=== PATIENT | female | born 1960 | race African-American/Black ===

== ENCOUNTER 2018-09-12 16:32 | Inpatient (IN) | payer OTHER ==
--- NOTE | 2018-09-12 19:38 | PDOC ---
History of Present Illness - General Chief Complaint: Pain Stated Complaint: L BREAST PAIN, [facility] Time Seen by Provider: 09/12/18 19:23 - History of Present Illness Initial Comments: 09/12/18 19:54 Ms. Solorzano is a 58 yo female w/ pmh of HIV, COPD, GERD, HTN, Schizoaffective disorder, LINDA, HIV/AIDS (patient endorses not taking HAART meds for several months), and left breast mass suspicious for malignancy who presents for evaluation of left breast mass pain she reports has been constant for several months. She has been self treating the pain with crack cocaine and alcohol. Patient presents as she went to [facility] today for detox and was sent to ER when she reported history/pain to facility staff. Patient had previously been evaluated months ago for this breast mass however facility was not able to provide biopsy and recommended outpatient follow-up which did not happen. The patient denies shortness of breath, headache and dizziness. Denies fever, chills, nausea, vomit, diarrhea and constipation. Denies dysuria, frequency, urgency and hematuria. Past History - Past Medical History Allergies/Adverse Reactions: Allergies Allergy/AdvReac Type Severity Reaction Status Date / Time Beta-Adrenergic Agents Allergy Verified 09/12/18 17:00 COPD: Yes GI Disorders: Yes (GERD) HTN: Yes Hypercholesterolemia: Yes Psychiatric Problems: Yes (SCHIZO) - Suicide/Smoking/Psychosocial Hx Smoking History: Current every day smoker Number of Cigarettes Smoked Daily: 5 Information on smoking cessation initiated: No Hx Alcohol Use: Yes Drug/Substance Use Hx: Yes Substance Use Type: Alcohol, Cocaine Review of Systems - Review of Systems Comments:: 09/12/18 20:06 GENERAL/CONSTITUTIONAL: No fever or chills. No weakness. HEAD, EYES, EARS, NOSE AND THROAT: No change in vision. No ear pain or discharge. No sore throat. CARDIOVASCULAR: No chest pain or shortness of breath RESPIRATORY: +Left chest pain as described. No cough, wheezing, or hemoptysis. GASTROINTESTINAL: No nausea, vomiting, diarrhea or constipation. GENITOURINARY: No dysuria, frequency, or change in urination. MUSCULOSKELETAL: No joint or muscle swelling or pain. No neck or back pain. SKIN: No rash NEUROLOGIC: No headache, vertigo, loss of consciousness, or change in strength/ sensation. ENDOCRINE: No increased thirst. No abnormal weight change HEMATOLOGIC/LYMPHATIC: No anemia, easy bleeding, or history of blood clots. ALLERGIC/IMMUNOLOGIC: No hives or skin allergy. *Physical Exam - Vital Signs Last Vital Signs Temp Pulse Resp BP Pulse Ox 98.8 F 70 18 130/64 99 09/12/18 16:52 09/12/18 16:52 09/12/18 16:52 09/12/18 16:52 09/12/18 16:52 - Physical Exam Comments: 09/12/18 20:07 GENERAL: Awake, alert, and fully oriented, in no acute distress HEAD: No signs of trauma, normocephalic, atraumatic EYES: PERRLA, EOMI, sclera anicteric, conjunctiva clear ENT: Auricles normal inspection, hearing grossly normal, nares patent, oropharynx clear without exudates. Moist mucosa NECK: Normal ROM, supple, no lymphadenopathy, JVD, or masses LUNGS: +Palpable hard mass appreciable in left breast (TTP). Some involution of left nipple appreciated. No distress, speaks full sentences, clear to auscultation bilaterally HEART: Regular rate and rhythm, normal S1 and S2, no murmurs, rubs or gallops, peripheral pulses normal and equal bilaterally. ABDOMEN: Soft, nontender, normoactive bowel sounds. No guarding, no rebound. No masses EXTREMITIES: Normal inspection, Normal range of motion, no edema. No clubbing or cyanosis. NEUROLOGICAL: Cranial nerves II through XII grossly intact. Normal speech, normal gait, no focal sensorimotor deficits SKIN: Warm, Dry, normal turgor, no rashes or lesions noted. ED Treatment Course - LABORATORY CBC & Chemistry Diagram: 09/12/18 21:47 09/12/18 21:47 Medical Decision Making - Medical Decision Making 09/12/18 20:24 Ms. Solorzano is a 58 yo female w/ pmh as described who presents for evaluation of chest pain 2/2 possible malignancy in the setting of untreated HIV /AIDS. Patient workup started accordingly to r/o infectious causes, patient will likely need admission for proper treatment inpatient. 09/12/18 23:44 Patient labs concerning for elevated creatinine and low WBC's as below. Admitting patient for further detox and evaluation/care of HIV and breast mass f /u. Laboratory Results - last 24 hr 1109/12/18 09/12/18 19:39 21:47 21:47 WBC 2.6 L RBC 4.10 Hgb 13.3 Hct 38.5 MCV 93.8 MCH 32.5 MCHC 34.6 RDW 13.3 Plt Count 85 L MPV 11.9 H Absolute Neuts (auto) 1.0 L Neutrophils % 39.1 L Lymphocytes % 37.0 Monocytes % 15.1 H Eosinophils % 7.3 H Basophils % 1.5 Nucleated RBC % 0 Platelet Estimate Slt decrease Platelet Comment Sodium 142 Potassium 4.2 Chloride 112 H Carbon Dioxide 23 Anion Gap 8 BUN 27 H Creatinine 2.2 H Creat Clearance w eGFR 23.01 Random Glucose 85 Calcium 7.6 L Magnesium 2.0 Total Bilirubin 0.3 AST 126 H ALT 95 H Alkaline Phosphatase 81 Creatine Kinase 114 Troponin I < 0.02 Total Protein 6.5 Albumin 1.9 L 09/12/18 21:47 WBC RBC Hgb Hct MCV MCH MCHC RDW Plt Count MPV Absolute Neuts (auto) Neutrophils % Lymphocytes % Monocytes % Eosinophils % Basophils % Nucleated RBC % Platelet Estimate Platelet Comment Sodium Potassium Chloride Carbon Dioxide Anion Gap BUN Creatinine Creat Clearance w eGFR Random Glucose Calcium Magnesium Total Bilirubin AST ALT Alkaline Phosphatase Creatine Kinase 116 Troponin I < 0.02 Total Protein Albumin *DC/Admit/Observation/Transfer Diagnosis at time of Disposition: AIDS, HIV (human immunodeficiency virus infection), Breast mass Alcohol withdrawal Qualifiers: Complication of substance-induced condition: with unspecified complication Qualified Code(s): F10.239 - Alcohol dependence with withdrawal, unspecified - Discharge Dispostion Decision to Admit order: Yes - Referrals - Patient Instructions - Post Discharge Activity
[2018-09-12] MEDS ORDERED: chlordiazePOXIDE HCL 25 MG CAPSULE PO ONE (19:40)
[2018-09-12] MEDS ORDERED: ACETAMINOPHEN 1000 MG/100 ML VIAL (NON FORMULARY) IVPB ONE (19:41)
[2018-09-12] MEDS ORDERED: chlordiazePOXIDE HCL 25 MG CAPSULE ONE (20:11)
[2018-09-12] MEDS ORDERED: ACETAMINOPHEN INJECTION 100 ML IVPB ONE (20:12)
--- NOTE | 2018-09-12 21:13 | PDOC ---
Attending Attestation - Resident Resident Name: Wilman Guzman - ED Attending Attestation I have performed the following: I have examined & evaluated the patient, The case was reviewed & discussed with the resident, I agree w/resident's findings & plan, Exceptions are as noted - Medical Decision Making 09/12/18 21:06 A portion of this note was documented by scribe services under my direction. I have reviewed the details of the note, within reason, and agree with the documentation with the following case summary and management plan written by me. Patient treated in the ED. Patient arrives by... to the emergency department. Nursing notes are reviewed and incorporated into the medical decision-making. Vital signs reviewed. Peripheral IV access obtained by the nurse, laboratory studies are drawn and sent, reviewed and interpreted by myself. Vital Signs Temp Pulse Resp BP Pulse Ox 98.8 F 70 18 130/64 99 09/12/18 16:52 09/12/18 16:52 09/12/18 16:52 09/12/18 16:52 09/12/18 16:52 58 year old F c/ hx of schizoaffective disorder, COPD, HLD, GERD, HIV, last HAART ~1 month ago, unknown VL and CD4 count sent from [address] [place] [address] for left breast pain. The patient is from [place] and recently entered here to [address] [place] [address]. During that time, she complained of left breast pain. The patient has had this left breast mass x several months. The patient was hospitalized in [place] in May 2018 (has paperwork with her) and at that time was admitted for hypotension and elevated lactate. At that time, was evaluated for breast mass vs. abscess. Ultrasound there demonstrated mass highly suspicious for malignancy. However, the discharge summary stated that the facility did not have the capabilities to perform a biopsy. The patient was discharged with breast followup. However, pt did not follow up and admitted that she was using drugs frequently and did not follow up. Once she decided to become sober, the patient had spoken to [address] [place] [address] and the patient was sent here. The patient likely has uncontrolled AIDS, not on medications, has no follow up, and a left breast mass that is likely cancer. Given her poor social status and currently on detox, the patient would likely do poorly with outpatient followup. I strongly feel that the patient will need to be worked up as an inpatient for cancer workup. <John Santiago - Last Filed: 09/12/18 21:21> - HPI HPI: 09/12/18 21:25 The patient is a 58 year old female with a significant PMH of hypertension, COPD , GERD, LINDA, HIV/AIDS( non compliant with medication), Schizoaffective disorder , and left breast mass who presents to the emergency department with left breast pain for several weeks. The patient reports that she has been previously evaluated for her left breast mass in the past but states that in the past several weeks she has been experiencing worsening pain and discomfort in her left breast. She states that her mass has grown in size. The patient reports that she went to [facility] to begin Detox but, was subsequently sent to the ED for further evaluation of her complaint. The patient reports some associated difficulty swallowing . the patient denies any other symptoms. She denies any fever, chills, nausea, vomiting diarrhea, constipation or urinary symptoms. She denies any other associated chest pain, shortness of breath, headache or dizziness. The patient denies any other complaints. - Physicial Exam PE: 09/12/18 21:25 GENERAL: (+) 5x5 cm left immobile breast mass. No discharge. Awake, alert, and fully oriented, in no acute distress HEAD: No signs of trauma EYES: PERRLA, EOMI, sclera anicteric, conjunctiva clear ENT: Auricles normal inspection, hearing grossly normal, nares patent, oropharynx clear without exudates. Moist mucosa NECK: Normal ROM, supple, no lymphadenopathy, JVD, or masses LUNGS: Breath sounds equal, clear to auscultation bilaterally. No wheezes, and no crackles HEART: Regular rate and rhythm, normal S1 and S2, no murmurs, rubs or gallops ABDOMEN: Soft, nontender, normoactive bowel sounds. No guarding, no rebound. No masses EXTREMITIES: Normal range of motion, no edema. No clubbing or cyanosis. No cords, erythema, or tenderness NEUROLOGICAL: Cranial nerves II through XII grossly intact. Normal speech, normal gait SKIN: Warm, Dry, normal turgor, no rashes or lesions noted. Documentation prepared by Eduardo Acevedo, acting as medical affairs specialist for John Santiago MD. <Eduardo Acevedo - Last Filed: 09/12/18 21:25>
[2018-09-12 22:24] LABS: BASO % 1.5 % (0-2.0); EOS % 7.3 % (0-4.5); HEMATOCRIT 38.5 % (32.4-45.2); HEMOGLOBIN 13.3 GM/dL (10.7-15.3); MCH 32.5 pg (25.7-33.7); MCHC 34.6 g/dl (32.0-36.0); MEAN CELL VOLUME 93.8 fl (80-96); MONO % 15.1 % (3.8-10.2); NEUT % 39.1 % (42.8-82.8); RDW 13.3 % (11.6-15.6); WHITE BLOOD COUNT 2.6 K/mm3 (4.0-10.0)
[2018-09-12 22:41] LABS: ALBUMIN 1.9 g/dl (3.4-5.0); ALK PHOS 81 U/L (45-117); ANION GAP 8 MMOL/L (8-16); BILIRUBIN,TOTAL 0.3 mg/dL (0.2-1); BLOOD UREA NITROGEN 27 mg/dL (7-18); CALCIUM 7.6 mg/dL (8.5-10.1); CHLORIDE 112 mmol/L (98-107); CO2 23 mmol/L (21-32); CREATININE 2.2 mg/dL (0.55-1.3); GLUCOSE,RANDOM 85 mg/dL (74-106); POTASSIUM 4.2 mmol/L (3.5-5.1); SGOT/AST 126 U/L (15-37); SGPT/ALT 95 U/L (13-61); SODIUM 142 mmol/L (136-145); TOT PROT 6.5 g/dl (6.4-8.2)
[2018-09-12 23:10] LABS: MEAN PLT VOLUME 11.9 fl (7.5-11.1); PLATELET COUNT 85 K/MM3 (134-434); PLATELET ESTIMATE SLT DECREASE
--- NOTE | 2018-09-13 00:23 | PN ---
Teaching Attending Note Name of Resident: Albaro Mtz ATTENDING PHYSICIAN STATEMENT I saw and evaluated the patient. I reviewed the resident's note and discussed the case with the resident. I agree with the resident's findings and plan as documented. SUBJECTIVE: Patient is a 58 year old woman who has COPD, GERD, HTN, Tobacco use, Schizoaffective disorder, LINDA?, HIV/AIDS (stopped HAART for several months), and left breast mass suspicious for malignancy who presents for evaluation of left breast mass pain she reports has been constant for several months. She has been self treating the pain with crack cocaine and alcohol. Patient presents as she went to [facility] today for detox and was sent to ER when she reported history/pain to facility staff. Patient had previously been evaluated months ago for this breast mass however facility was not able to provide biopsy and recommended outpatient follow-up which did not happen. OBJECTIVE: Somnolent but arousable Vital Signs Period Temp Pulse Resp BP Sys/Lr Pulse Ox Last 24 Hr 98.8 F 70 18 130/64 99 HEENT: No Jaundice, eye redness or discharge, PERRLA, EOMI. Normocephalic, atraumatic. External ears are normal and hearing is grossly intact. No nasal discharge. Neck: Supple, nontender. No palpable adenopathy or thyromegaly. No JVD Chest: Tender left breast mass. No palpable lymphadenopathy. Good effort. Clear to auscultation and percussion. Heart: Regular. No S3, rub or murmur Abdomen: Not distended, soft, nontender and no HSM. No rebound or guarding. Normoactive bowel sounds. Ext: Peripheral pulses intact. No leg edema. Skin: Warm and dry. No petechiae, rash or ecchymosis. Neuro: Alert. Oriented x3. CN 2-12 grossly intact. Sensation grossly intact in all four extremities and DTR are symmetric. Current Medications Generic Name Dose Route Start Last Admin Trade Name Freq PRN Reason Stop Dose Admin Heparin Sodium (Porcine) 5,000 unit 09/13/18 02:00 Heparin - SQ Q8H-IV TIMMY Sodium Chloride 1,000 mls @ 100 mls/hr 09/13/18 00:15 Normal Saline - IV ASDIR TIMMY Abnormal Lab Results 09/12/18 09/12/18 21:47 21:47 WBC 2.6 L Plt Count 85 L MPV 11.9 H Absolute Neuts (auto) 1.0 L Neutrophils % 39.1 L Monocytes % 15.1 H Eosinophils % 7.3 H Chloride 112 H BUN 27 H Creatinine 2.2 H Calcium 7.6 L AST 126 H ALT 95 H Albumin 1.9 L ASSESSMENT AND PLAN: 1. Left Breast Mass - Mass is tender - may be an infection or secondarily infected mass. Needs further workup including sonogram and biopsy. Consult surgery and IR. 2. HIV/AIDS - Needs comprehensive AIDS care including HAART. Will get viral load , CD4 count and hepatitis serology. Elevated LFTs, low platelets and leukopenia likely due to untreated AIDS. Monitor closely for infection in view of leukopenia. Consult ID. 3. Hypoalbuminemia - Possibly due to combined effects of proteinuria, malnutrition and inflammation associated with AIDS. Will ensure adequate dietary protein intake and also consult nurse charge rn. 4. Tobacco Use We will provide patient all the necessary assistance to facilitate smoking cessation and prescribe Nicotine patch. 5. LINDA - Etiology unclear, but severe hypoalbuminemia suggests HIV nephropathy. Get UA, kidney sonogram, PTH and phosphate levels. Consult nephrology and avoid nephrotoxic agents such as NSAIDS, aminoglycosides, contrast dyes and certain Alternative medicine products. 6. Alcohol and Crack abuse - Implement [facility] alcohol withdrawal protocol, fall and aspiration precautions. Treat with thiamine and folic acid and monitor electrolytes (Ca,Mg,K,P). [employer] patient about abstaining from alcohol/crack and refer to alcohol detox upon discharge. 7. DVT prophylaxis - Heparin 5000u sq tid. 8. Advance directives - Full code
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
[2018-09-13] MEDS: SODIUM CHLORIDE 1,000 ML IV SCH (01:04)
[2018-09-13 05:37] LABS: BASO % 1.1 % (0-2.0); EOS % 6.5 % (0-4.5); HEMATOCRIT 39.3 % (32.4-45.2); HEMOGLOBIN 12.6 GM/dL (10.7-15.3); LYMPH % 33.8 % (8-40); MCH 30.4 pg (25.7-33.7); MCHC 32.2 g/dl (32.0-36.0); MEAN CELL VOLUME 94.4 fl (80-96); MEAN PLT VOLUME 11.9 fl (7.5-11.1); MONO % 13.1 % (3.8-10.2); NEUT % 45.5 % (42.8-82.8); PLATELET COUNT 84 K/MM3 (134-434); RBC 4.16 M/mm3 (3.60-5.2); RDW 13.3 % (11.6-15.6); WHITE BLOOD COUNT 2.8 K/mm3 (4.0-10.0)
[2018-09-13 06:03] LABS: ALBUMIN 1.8 g/dl (3.4-5.0); ALK PHOS 71 U/L (45-117); ANION GAP 7 MMOL/L (8-16); BILIRUBIN,TOTAL 0.1 mg/dL (0.2-1); BLOOD UREA NITROGEN 34 mg/dL (7-18); CALCIUM 7.4 mg/dL (8.5-10.1); CHLORIDE 114 mmol/L (98-107); CO2 24 mmol/L (21-32); CREATININE 2.5 mg/dL (0.55-1.3); GLUCOSE,RANDOM 89 mg/dL (74-106); POTASSIUM 4.1 mmol/L (3.5-5.1); SGOT/AST 110 U/L (15-37); SGPT/ALT 86 U/L (13-61); SODIUM 145 mmol/L (136-145); TOT PROT 5.9 g/dl (6.4-8.2)
[2018-09-13] MEDS: HEPARIN NA (PORCINE) 5,000 UNITS/ML 1ML VIAL SQ SCH ×3 (09:57→22:47)
--- NOTE | 2018-09-13 12:58 | CONSULT ---
Consult Consult Specialty:: Nephrology Reason for Consultation:: LINDA - History of Present Illness Chief Complaint: left breast pain History of Present Illness: Pt is a 58 year old female with pmhx of HIV, COPD, GERD, HTN, schizaffective disorder, renal failure, HIV, AIDS and left breast mass who presents with left breast pain. She was fount to be in renal failure and I was called to evaluate her. She does crack and smokes marijuana. She also drinks alcohol. She says she had kidney disease in the past. She was at [facility] for detox. She denies dysuria or hematuria. She does use nsaids at times. She has been off of her HAART meds for months. - History Source History Provided By: Patient, Medical Record - Past Medical History Cardio/Vascular: Yes: HTN Pulmonary: Yes: COPD Gastrointestinal: Yes: GERD Renal/: Yes: Renal Inusuff Infectious Disease: Yes: HIV - Alcohol/Substance Use Hx Alcohol Use: Yes History of Substance Use: reports: Cocaine - Smoking History Smoking history: Current every day smoker Have you smoked in the past 12 months: Yes Aproximately how many cigarettes per day: 5 Home Medications - Allergies Allergies/Adverse Reactions: Allergies Allergy/AdvReac Type Severity Reaction Status Date / Time Beta-Adrenergic Agents Allergy Verified 09/12/18 17:00 Family Disease History - Family Disease History Family History: Denies Review of Systems - Review of Systems Constitutional: reports: No Symptoms Eyes: reports: No Symptoms HENT: reports: No Symptoms Neck: reports: No Symptoms Cardiovascular: reports: No Symptoms Respiratory: reports: No Symptoms Gastrointestinal: reports: No Symptoms Genitourinary: reports: No Symptoms Breasts: reports: Other (left breast pain) Musculoskeletal: reports: No Symptoms Integumentary: reports: No Symptoms Endocrine: reports: No Symptoms Hematology/Lymphatic: reports: No Symptoms Physical Exam Vital Signs: Vital Signs Temperature 98.3 F 09/13/18 08:45 Pulse Rate 61 09/13/18 08:45 Respiratory Rate 16 09/13/18 08:45 Blood Pressure 113/56 L 09/13/18 08:45 O2 Sat by Pulse Oximetry (%) 99 09/13/18 08:45 Constitutional: Yes: Calm Eyes: Yes: Conjunctiva Clear HENT: Yes: Atraumatic Neck: Yes: Supple Cardiovascular: Yes: S1, S2 Respiratory: Yes: CTA Bilaterally Gastrointestinal: Yes: Soft Renal/: Yes: WNL Musculoskeletal: Yes: WNL Edema: No Neurological: Yes: Oriented Psychiatric: Yes: Oriented Labs: CBC, BMP 09/13/18 05:20 09/13/18 05:20 Laboratory Tests 09/12/18 09/13/18 09/13/18 21:47 05:20 05:20 WBC Hgb Sodium Potassium Creatinine 2.2 H Hepatitis A Ab Total Pending Hep Bs Antigen Pending Hep Bs Antibody Pending Hep B Core Total Ab Pending HCV Quantitation HIV-1 RNA Quant Pending HIV-1 RNA (PCR) log10 Pending 09/13/18 09/13/18 09/13/18 05:20 05:20 05:20 WBC 2.8 L Hgb 12.6 Sodium 145 Potassium 4.1 Creatinine 2.5 H Hepatitis A Ab Total Hep Bs Antigen Hep Bs Antibody Hep B Core Total Ab HCV Quantitation Pending HIV-1 RNA Quant HIV-1 RNA (PCR) log10 Imaging - Results Chest X-ray: Report Reviewed Ultrasound: Report Reviewed Problem List - Problems (1) CKD (chronic kidney disease) Code(s): N18.9 - CHRONIC KIDNEY DISEASE, UNSPECIFIED (2) HTN (hypertension) Code(s): I10 - ESSENTIAL (PRIMARY) HYPERTENSION (3) COPD (chronic obstructive pulmonary disease) Code(s): J44.9 - CHRONIC OBSTRUCTIVE PULMONARY DISEASE, UNSPECIFIED (4) AIDS Code(s): B20 - HUMAN IMMUNODEFICIENCY VIRUS [HIV] DISEASE (5) Breast mass Code(s): N63.0 - UNSPECIFIED LUMP IN UNSPECIFIED BREAST (6) HIV (human immunodeficiency virus infection) Code(s): B20 - HUMAN IMMUNODEFICIENCY VIRUS [HIV] DISEASE Assessment/Plan Current Medications Generic Name Dose Route Start Last Admin Trade Name Freq PRN Reason Stop Dose Admin Acetaminophen/Codeine Phosphate 1 tab 09/13/18 13:33 Tylenol # 3 - PO Q8H PRN PAIN LEVEL 4 - 6 Heparin Sodium (Porcine) 5,000 unit 09/13/18 06:00 09/13/18 09:57 Heparin - SQ Not Given TID TIMMY Sodium Chloride 1,000 mls @ 100 mls/hr 09/13/18 00:15 09/13/18 01:04 Normal Saline - IV 100 mls/hr ASDIR TIMMY Administration Impression 1. CKD with unclear baseline 2. COPD 3. HTN 4. HIV not on haart 5. breast mass 6. etoh abuse 7. crack use 8. schizzoaffective 9. gerd Plan - check ua with urine prt to commission for the blind director ratio - will order renal workup - follow hiv serologies to check statu - differential is broad at this point - bp is controlled - avoid nsaids - will try to obtain outpt labs to see what her baseline [facility] the [facility] director is - will follow Dr Arrington
[2018-09-13] MEDS: ACETAMINOPHEN WITH CODEINE 300MG/30MG TABLET PO PRN ×2 (14:05→22:48)
--- NOTE | 2018-09-13 15:42 | EKG ---
Test Reason : Blood Pressure : / mmHG Vent. Rate : 057 BPM Atrial Rate : 057 BPM P-R Int : 164 ms QRS Dur : 080 ms QT Int : 430 ms P-R-T Axes : 040 034 050 degrees QTc Int : 418 ms SINUS BRADYCARDIA SEPTAL INFARCT , AGE UNDETERMINED ABNORMAL ECG NO PREVIOUS ECGS AVAILABLE Confirmed by TE MORENO, AMOS ([id number]) on 09/13/2018 3:42:19 PM Referred By: Confirmed By:AMOS TIWARI MD
--- NOTE | 2018-09-13 16:07 | CON.ID ---
Consult Consult Specialty:: infectious disease Referred by:: hospitalist Reason for Consultation:: HIV positive - History of Present Illness Chief Complaint: left breast pain History of Present Illness: 58 yo female crack/etoh use , hiv= positive- followed by Bibiana Medina at [facility] in [facility], 4 to 5 month history of left breast pain for which she has not sought f/u care. Her HIV medication use is very spotty and she has been off meds since June when she took them for one week-reports her provider had asked her to come weekly and that she only kept one appt she was her provider last week and meds were prescribed again- I called her pharmacy she takes prezcobix and tivicay no history of OIS has been having trouble swallowing for months- also has worsening left breast pain denies IVDU denies history of TB denies hep b or hep c med list from pharmacy prezcobis tivicay folic acid gabapentin 400 tid ventolin MDI - History Source History Provided By: Patient Limitations to Obtaining History: Clinical Condition - Past Medical History Cardio/Vascular: Yes: HTN Pulmonary: Yes: COPD Gastrointestinal: Yes: GERD ...LMP Comment: post menopause ...: No Infectious Disease: Yes: HIV (since 2004 ) - Alcohol/Substance Use Hx Alcohol Use: Yes - Smoking History Smoking history: Current every day smoker Have you smoked in the past 12 months: Yes Aproximately how many cigarettes per day: 5 - Social History Usual Living Arrangement: Alone ADL: Independent Occupation: unemployed History of Recent Travel: No Home Medications - Allergies Allergies/Adverse Reactions: Allergies Allergy/AdvReac Type Severity Reaction Status Date / Time Beta-Adrenergic Agents Allergy Verified 09/12/18 17:00 Family Disease History - Family Disease History Family History: Unable to Obtain Review of Systems - Review of Systems Constitutional: reports: No Symptoms. denies: Chills, Diaphoresis Eyes: reports: No Symptoms HENT: reports: Difficult Swallowing. denies: Throat Pain Neck: reports: No Symptoms Cardiovascular: reports: Chest Pain Respiratory: reports: No Symptoms. denies: Cough Gastrointestinal: denies: Abdominal Pain, Constipation, Diarrhea Genitourinary: reports: No Symptoms Breasts: reports: Pain (left breast) Physical Exam Vital Signs: Vital Signs Temperature 98.8 F 09/13/18 15:34 Pulse Rate 72 09/13/18 15:34 Respiratory Rate 18 09/13/18 15:34 Blood Pressure 128/75 09/13/18 15:34 O2 Sat by Pulse Oximetry (%) 97 09/13/18 15:21 Constitutional: Yes: Well Nourished, No Distress Eyes: Yes: Conjunctiva Clear HENT: Yes: Atraumatic, Normocephalic, Thrush Neck: Yes: Supple, Trachea Midline Cardiovascular: Yes: Regular Rate and Rhythm Respiratory: Yes: CTA Bilaterally Gastrointestinal: Yes: Normal Bowel Sounds Breast(s): Yes: Left (breat with tender mass, +left axillary adenopathy), Mass Extremities: Yes: WNL Edema: No Psychiatric: Yes: Alert, Oriented Labs: CBC, BMP 09/13/18 05:20 09/13/18 05:20 Imaging - Results Chest X-ray: Report Reviewed, Image Reviewed Problem List - Problems (1) HIV (human immunodeficiency virus infection) Code(s): B20 - HUMAN IMMUNODEFICIENCY VIRUS [HIV] DISEASE (2) Abnormal LFTs Code(s): R94.5 - ABNORMAL RESULTS OF LIVER FUNCTION STUDIES (3) Breast mass Code(s): N63.0 - UNSPECIFIED LUMP IN UNSPECIFIED BREAST (4) Renal insufficiency Code(s): N28.9 - DISORDER OF KIDNEY AND URETER, UNSPECIFIED Assessment/Plan once lfts stabilize can resume tivicay and prezcobix- she is eager to resume await cd4 count suspect willl be low and she will need PCP prophylaxis she should f/u with her provider in [place] breast mass management per primary service
[2018-09-13] MEDS: NYSTATIN 500,000 UNITS/5 ML SUSPENSION PO SCH ×2 (18:15→23:03)
[2018-09-13 21:51] LABS: URINE APPEARANCE CLEAR; URINE BILIRUBIN NEGATIVE (<2.0 mg/dL); URINE COLOR YELLOW; URINE GLUCOSE (UA) 1+ (NEGATIVE); URINE KETONE NEGATIVE (NEGATIVE); URINE LEUK ESTERASE NEGATIVE (NEGATIVE); URINE NITRITE NEGATIVE (NEGATIVE); URINE PROTEIN 3+ (NEGATIVE); URINE UROBILINOGEN NEGATIVE mg/dL (0.2-1.0)
[2018-09-13 21:53] LABS: METHADONE, UR NEGATIVE ng/ml (CUTOFF=300); PHENCYCLIDINE,URINE NEGATIVE ng/ml (CUTOFF=25); URINE AMPHETAMINES NEGATIVE ng/ml (CUTOFF=500); URINE BARBITURATES NEGATIVE ng/ml (CUTOFF=200)
[2018-09-13 21:57] LABS: URINE BENZODIAZEPINES POSITIVE ng/ml (CUTOFF=200)
[2018-09-13 21:58] LABS: COCAINE, UR POSITIVE ng/ml (CUTOFF=300); OPIATES, URI POSITIVE ng/ml (CUTOFF=300)
[2018-09-13 22:15] LABS: EPI CELLS RARE /HPF (FEW); URINE HYALINE CAST 1 /lpf; URINE MUCUS RARE
[2018-09-13 23:30] LABS: RATIO URIN PROTEIN/URIN CREAT 5.7 MG/DL
[2018-09-14] MEDS: HEPARIN NA (PORCINE) 5,000 UNITS/ML 1ML VIAL SQ SCH ×3 (05:55→22:39)
[2018-09-14] MEDS: NYSTATIN 500,000 UNITS/5 ML SUSPENSION PO SCH ×3 (05:55→17:56)
--- NOTE | 2018-09-14 09:05 | PN ---
Teaching Attending Note Name of Resident: Valentin Butler ATTENDING PHYSICIAN STATEMENT I saw and evaluated the patient. I reviewed the resident's note and discussed the case with the resident. I agree with the resident's findings and plan as documented. SUBJECTIVE:c/o odynophagia, however is hungry and requesting food. staets she has lost 60lbs unintentionally due to inability to tolerate po. has been compliant with HIV medication but appears she was not taking other medications. her last use of ETOH and cocaine (smokes) was day prior to arrival to [facility]. has had multiple hospitalizations recently and signed out AMA every time. states she came here because she will be less tempted to sign out AMA because its too far from her house. Denies CP, fever, chills, N/V/C/D OBJECTIVE: Last Vital Signs Temp Pulse Resp BP Pulse Ox 99.8 F H 63 20 120/63 99 09/14/18 06:00 09/14/18 06:00 09/14/18 06:00 09/14/18 06:00 09/13/18 21:00 General NAD HEENT oral plaque dry oral mucosa CV s1 S2 RRR no murmur/rub/gallop Lungs CTA B/L no wheezing/rales/rhonchi Breast L breast mass lateral to nipple, tender. unable to palpate LN in the axilla extremities trace pitting edema ASSESSMENT AND PLAN: 58yo F with PMH HIV on HARRT, COPD, CHF, schizoaffective disease, CKD, continuous polysubstance abuse and long standing hx of non compliance with frequent AMA and lack of outpatient follow up presented to the ER from [facility] wtih L breast pain 1. L breast mass- seen on u/s with +axillary LN. seen at multiple hospitals with U/S showing mass and supposedly mammogram done but no reports seen. birads 5 per previous report. was supposedly to f/u with Breast bx which she never did. spoke with breast surgeon who agrees with bx by IR under u/s guidance. 2. 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 her most recent labs shows Cr 1.75. will start IVF. encourage po intake. monitor renal function. avoid nephrotoxic medications. Nephro on board 3. Oral thrush- with suspected esophageal. was recently on diflucan in April and states she "compelted course", due to significant weight loss and continued pain will restart fluconazole. may need repeat EGD. encourage po intake. nephro 4. Transaminitis- trending down from April (AST/ALT 135/77) was reported to have dilated CBD at that time and pt refused MRCP. will order RUQ u/s to evaluate CBD. hepatitis panel at that time negative. repeat sent here 5. Leukopenia- Due to HIV 6. thrombocytopenia- due to HIV 7. Continuous cocaine/ETOH dependence- CIWA 0. no signs of withdrawal. no indication for treatment. states she never had ETOH withdrawal seizure or DTs in the past. interested in returing to [facility] when medically optimized 8. HIV on HARRT- in April CD4 77, [place] [id number]. repeat sent here. was on bactrim and azithro and both have been stopped. (bactrim likely due to CKD). d/w ID as LFT are improved will re-start HARRT therapy. mepron for PCP ppx. will wait on starting azithro pednign repeat CD4 9. will need to med rec. will hold plavix as this time as unclear why pt is on . states for her CHF. claims no stents. states she last took plavix over a month ago 10. DVT ppx- hep sq
[2018-09-14] MEDS: SODIUM CHLORIDE 1,000 ML IV SCH (11:40)
[2018-09-14] MEDS: ATOVAQUONE 750 MG/5 ML (UNIT-DOSE PACKAGING) PO SCH (11:42)
[2018-09-14] MEDS: FLUCONAZOLE 100 MG TABLET (UD) PO SCH (11:46)
[2018-09-14 12:40] VITALS: BMI 21.4
--- NOTE | 2018-09-14 13:20 | PN ---
Progress Note, Physician History of Present Illness: Pt seen and examined at bedside. She is awake and alert. She denies shortness of breath. - Current Medication List Current Medications: Active Medications Acetaminophen/Codeine Phosphate (Tylenol # 3 -) 1 tab PO Q8H PRN PRN Reason: PAIN LEVEL 4 - 6 Last Admin: 09/13/18 22:48 Dose: 1 tab Atovaquone (Mepron -) 1,500 mg PO DAILY@0800 [facility] Last Admin: 09/14/18 11:42 Dose: 1,500 mg Fluconazole (Diflucan -) 100 mg PO DAILY [facility] Last Admin: 09/14/18 11:46 Dose: 100 mg Heparin Sodium (Porcine) (Heparin -) 5,000 unit SQ TID [facility] Last Admin: 09/14/18 05:55 Dose: 5,000 unit Sodium Chloride (Normal Saline -) 1,000 mls @ 100 mls/hr IV ASDIR [facility] Last Admin: 09/14/18 11:40 Dose: 100 mls/hr Nystatin (Nystatin Oral Suspension -) 500,000 units PO Q6HPO [facility] Last Admin: 09/14/18 05:55 Dose: 500,000 units Tramadol HCl (Ultram -) 50 mg PO Q6H PRN PRN Reason: PAIN LEVEL 6-10 - Objective Vital Signs: Vital Signs Temperature 99.8 F H 09/14/18 06:00 Pulse Rate 63 09/14/18 06:00 Respiratory Rate 20 09/14/18 06:00 Blood Pressure 120/63 09/14/18 06:00 O2 Sat by Pulse Oximetry (%) 99 09/13/18 21:00 Constitutional: Yes: Calm Eyes: Yes: Conjunctiva Clear HENT: Yes: Atraumatic Cardiovascular: Yes: S1, S2 Respiratory: Yes: CTA Bilaterally Gastrointestinal: Yes: Normal Bowel Sounds, Soft Genitourinary: Yes: WNL Musculoskeletal: Yes: WNL Edema: No Neurological: Yes: Oriented Psychiatric: Yes: Oriented Labs: CBC, BMP 09/13/18 05:20 09/13/18 05:20 Problem List - Problems (1) CKD (chronic kidney disease) Code(s): N18.9 - CHRONIC KIDNEY DISEASE, UNSPECIFIED (2) HTN (hypertension) Code(s): I10 - ESSENTIAL (PRIMARY) HYPERTENSION (3) COPD (chronic obstructive pulmonary disease) Code(s): J44.9 - CHRONIC OBSTRUCTIVE PULMONARY DISEASE, UNSPECIFIED (4) AIDS Code(s): B20 - HUMAN IMMUNODEFICIENCY VIRUS [HIV] DISEASE (5) Breast mass Code(s): N63.0 - UNSPECIFIED LUMP IN UNSPECIFIED BREAST (6) HIV (human immunodeficiency virus infection) Code(s): B20 - HUMAN IMMUNODEFICIENCY VIRUS [HIV] DISEASE Assessment/Plan Current Medications Generic Name Dose Route Start Last Admin Trade Name Freq PRN Reason Stop Dose Admin Acetaminophen/Codeine Phosphate 1 tab 09/13/18 13:33 09/13/18 22:48 Tylenol # 3 - PO 1 tab Q8H PRN Administration PAIN LEVEL 4 - 6 Atovaquone 1,500 mg 09/14/18 10:15 09/14/18 11:42 Mepron - PO 1,500 mg DAILY@0800 TIMMY Administration Fluconazole 100 mg 09/14/18 10:15 09/14/18 11:46 Diflucan - PO 100 mg DAILY TIMMY Administration Heparin Sodium (Porcine) 5,000 unit 09/13/18 06:00 09/14/18 05:55 Heparin - SQ 5,000 unit TID TIMMY Administration Sodium Chloride 1,000 mls @ 100 mls/hr 09/13/18 00:15 09/14/18 11:40 Normal Saline - IV 100 mls/hr ASDIR TIMMY Administration Nystatin 500,000 units 09/13/18 18:00 09/14/18 05:55 Nystatin Oral Suspension - PO 500,000 units Q6HPO TIMMY Administration Tramadol HCl 50 mg 09/14/18 12:26 Ultram - PO Q6H PRN PAIN LEVEL 6-10 Laboratory Tests 09/13/18 09/14/18 20:30 06:30 Protein/Creatinin Ratio 5.7 CATHIE M-Herson Pending DELPHINE Screen Pending c-ANCA Pending Proteinase 3 (PR3) Pending p-ANCA Pending Atypical p-ANCA Pending Myeloperoxidase Ab Pending Glomerular Base Memb Ab Pending Impression 1. CKD with unclear baseline 2. COPD 3. HTN 4. HIV not on haart 5. breast mass 6. etoh abuse 7. crack use 8. schizzoaffective 9. gerd 10. 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
--- NOTE | 2018-09-14 14:25 | PN ---
Physical Exam: SUBJECTIVE: Patient seen and examined at bedside. Complaining of odynophagia. OBJECTIVE: Vital Signs Period Temp Pulse Resp BP Sys/Lr Pulse Ox Last 24 Hr 97.9 F-99.8 F 61-72 18-20 105-128/55-75 97-99 GENERAL: awake and alert, NAD LUNGS: CTAB, no wheezes, no crackles, no accessory muscle use. HEART: RRR, S1, S2 without murmur, rub or gallop. Breast: left breast mass lateral to nipple. mobile and tender. ABDOMEN: Soft, NTND,NABS no guarding, no rebound, no hepatosplenomegaly, no masses. EXTREMITIES: 2+ pulses, warm, well-perfused, no edema. NEUROLOGICAL: Cranial nerves II through XII grossly intact. Normal speech, gait not observed. PSYCH: Normal mood, normal affect. SKIN: Warm, dry, normal turgor, no rashes or lesions noted Laboratory Results - last 24 hr 09/13/18 09/13/18 09/13/18 05:20 05:20 20:30 WBC 3.1 L Absolute Lymphs (auto) 1.0 Lymphocytes 35 Nucleated RBCs TNP PTH Intact 195 H Urine Color Yellow Urine Appearance Clear Urine pH 6.0 Ur Specific [place] 1.022 Urine Protein 3+ H Urine Glucose (UA) 1+ H Urine Ketones Negative Urine Blood Negative Urine Nitrite Negative Urine Bilirubin Negative Urine Urobilinogen Negative Ur Leukocyte Esterase Negative Urine WBC (Auto) 1 Urine RBC (Auto) 3 Ur Epithelial Cells Rare Hyaline Casts 1 Urine Mucus Rare U Random Total Protein Urine Creatinine Protein/Creatinin Ratio Opiates Screen Methadone Screen Barbiturate Screen Phencyclidine Screen Ur Amphetamines Screen MDMA (Ecstasy) Screen Benzodiazepines Screen Cocaine Screen U Marijuana (THC) Screen Absolute CD3 Count 785 % CD3+ Lymphocytes 78.5 Absolute CD4 [place] 71 L % CD4+ Lymphocyte 7.1 L CD4/CD8 Ratio 0.10 L % CD8+ Lymphocyte 70.2 H Absolute CD8 Count 702 09/13/18 09/13/18 20:30 20:30 WBC Absolute Lymphs (auto) Lymphocytes Nucleated RBCs PTH Intact Urine Color Urine Appearance Urine pH Ur Specific Hopkins Urine Protein Urine Glucose (UA) Urine Ketones Urine Blood Urine Nitrite Urine Bilirubin Urine Urobilinogen Ur Leukocyte Esterase Urine WBC (Auto) Urine RBC (Auto) Ur Epithelial Cells Hyaline Casts Urine Mucus U Random Total Protein 816 H Urine Creatinine 143.0 H Protein/Creatinin Ratio 5.7 Opiates Screen Positive A* Methadone Screen Negative Barbiturate Screen Negative Phencyclidine Screen Negative Ur Amphetamines Screen Negative MDMA (Ecstasy) Screen Negative Benzodiazepines Screen Positive A* Cocaine Screen Positive A* U Marijuana (THC) Screen Negative Absolute CD3 Count % CD3+ Lymphocytes Absolute CD4 Barre % CD4+ Lymphocyte CD4/CD8 Ratio % CD8+ Lymphocyte Absolute CD8 Count Active Medications Generic Name Dose Route Start Last Admin Trade Name Freq PRN Reason Stop Dose Admin Acetaminophen/Codeine Phosphate 1 tab 09/13/18 13:33 09/13/18 22:48 Tylenol # 3 - PO 1 tab Q8H PRN Administration PAIN LEVEL 4 - 6 Atovaquone 1,500 mg 09/14/18 10:15 09/14/18 11:42 Mepron - PO 1,500 mg DAILY@0800 TIMMY Administration Fluconazole 100 mg 09/14/18 10:15 09/14/18 11:46 Diflucan - PO 100 mg DAILY TIMMY Administration Heparin Sodium (Porcine) 5,000 unit 09/13/18 06:00 09/14/18 13:27 Heparin - SQ 5,000 unit TID TIMMY Administration Sodium Chloride 1,000 mls @ 100 mls/hr 09/13/18 00:15 09/14/18 11:40 Normal Saline - IV 100 mls/hr ASDIR TIMMY Administration Nystatin 500,000 units 09/13/18 18:00 09/14/18 13:25 Nystatin Oral Suspension - PO 500,000 units Q6HPO TIMMY Administration Tramadol HCl 50 mg 09/14/18 12:26 Ultram - PO Q6H PRN PAIN LEVEL 6-10 ASSESSMENT/PLAN: Problem List - Problems (1) Acute on chronic kidney failure Assessment/Plan: 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 * recent labs shows Cr 1.75. will start IVF. * encourage po intake. monitor renal function. * avoid nephrotoxic medications. . * Nephro on board (2) Oral thrush Assessment/Plan: started on nystatin swish and swallow. (3) Transaminitis Assessment/Plan: improving from April labs * dilated CBD at that time , refused MRCP. * RUQ u/s to evaluate CBD. * hepatitis panel at that time negative. * repeat sent here (4) Polysubstance abuse (5) Breast mass Assessment/Plan: Will consult breast surgeon for possible biopsy. (6) HTN (hypertension) Visit type - Emergency Visit Emergency Visit: Yes ED Registration Date: 09/12/18 Care time: The patient presented to the Emergency Department on the above date and was hospitalized for further evaluation of their emergent condition. - New Patient This patient is new to me today: Yes Date on this admission: 09/18/18 - Critical Care Critical Care patient: No
[2018-09-14] MEDS: ACETAMINOPHEN WITH CODEINE 300MG/30MG TABLET PO PRN (22:40)
[2018-09-15] MEDS: NYSTATIN 500,000 UNITS/5 ML SUSPENSION PO SCH ×4 (00:31→17:57)
[2018-09-15] MEDS: SODIUM CHLORIDE 1,000 ML IV SCH (02:31)
[2018-09-15] MEDS: HEPARIN NA (PORCINE) 5,000 UNITS/ML 1ML VIAL SQ SCH ×3 (06:22→22:05)
[2018-09-15] MEDS: traMADol HCL 50 MG TABLET PO PRN (06:23)
[2018-09-15 07:51] LABS: BASO % 1.5 % (0-2.0); EOS % 7.7 % (0-4.5); HEMATOCRIT 37.1 % (32.4-45.2); HEMOGLOBIN 11.9 GM/dL (10.7-15.3); LYMPH % 44.3 % (8-40); MCH 30.6 pg (25.7-33.7); MCHC 32.2 g/dl (32.0-36.0); MEAN CELL VOLUME 94.9 fl (80-96); MEAN PLT VOLUME 12.4 fl (7.5-11.1); MONO % 11.9 % (3.8-10.2); NEUT % 34.6 % (42.8-82.8); PLATELET COUNT 67 K/MM3 (134-434); RBC 3.91 M/mm3 (3.60-5.2); RDW 13.1 % (11.6-15.6); WHITE BLOOD COUNT 2.5 K/mm3 (4.0-10.0)
[2018-09-15 08:23] LABS: ALBUMIN 1.5 g/dl (3.4-5.0); ALK PHOS 59 U/L (45-117); ANION GAP 7 MMOL/L (8-16); BILIRUBIN,TOTAL 0.1 mg/dL (0.2-1); BLOOD UREA NITROGEN 20 mg/dL (7-18); CHLORIDE 117 mmol/L (98-107); CO2 22 mmol/L (21-32); CREATININE 1.7 mg/dL (0.55-1.3); GLUCOSE,RANDOM 92 mg/dL (74-106); POTASSIUM 3.7 mmol/L (3.5-5.1); SGOT/AST 75 U/L (15-37); SGPT/ALT 57 U/L (13-61); SODIUM 145 mmol/L (136-145)
[2018-09-15] MEDS ORDERED: PT OWN MED DRAWER 7, Y5N ONE (10:42)
[2018-09-15] MEDS: FLUCONAZOLE 100 MG TABLET (UD) PO SCH (10:44)
[2018-09-15] MEDS: ATOVAQUONE 750 MG/5 ML (UNIT-DOSE PACKAGING) PO SCH (10:44)
--- NOTE | 2018-09-15 12:36 | PN ---
Progress Note (short form) - Note Progress Note: still with breast pain swallowing improved eating improved Vital Signs Period Temp Pulse Resp BP Sys/Lr Pulse Ox Last 24 Hr 98.5 F-99.2 F 61-66 20-20 128-137/55-78 100 no thrush cor-rrr lungs clear abd soft,nt ext no edema CBC, BMP 09/15/18 06:40 09/15/18 06:40 Laboratory Tests 09/13/18 09/15/18 05:20 06:40 Total Bilirubin 0.1 L AST 75 H ALT 57 Alkaline Phosphatase 59 Absolute CD4 [place] 71 L ultrasound with CBD 1.4 cm a/p AIDS with breast mass, thrush, dilated CBD LFTs improved off ETOH can resume tivicay/prezcobix f/u hep serology for breast biopsy needs imaging of dilated CBD thrush improved on diflucan continue mepron for pcp propylaxis substance use ckd- avoid bactrim for now will need to return to her clinic in [place] on discharge Problem List - Problems (1) HIV (human immunodeficiency virus infection) Code(s): B20 - HUMAN IMMUNODEFICIENCY VIRUS [HIV] DISEASE (2) Abnormal LFTs Code(s): R94.5 - ABNORMAL RESULTS OF LIVER FUNCTION STUDIES (3) Breast mass Code(s): N63.0 - UNSPECIFIED LUMP IN UNSPECIFIED BREAST (4) Renal insufficiency Code(s): N28.9 - DISORDER OF KIDNEY AND URETER, UNSPECIFIED
--- NOTE | 2018-09-15 14:36 | CONSULT ---
- Consultation REQUESTING PROVIDER: Sri MORENO CONSULT REQUEST: We have been asked to surgically evaluate this patient for an undxed left breast mass for # months. PCP:Sharron Dawson MD HISTORY OF PRESENT ILLNESS: 58 y/o A/A/F w/known left breast mass had an imaging w/u elsewhere was admitted here for same after she could not be admitted to [facility]; she is post menopausal. PMHx: HIV since 2004; substance abuse PSHx: none Home Medications Medication Instructions Recorded Darunavir/Cobicistat [Prezcobix 1 each PO DAILY 09/13/18 800 mg-150 mg Tablet] Cyproheptadine [Periactin -] 4 mg PO Q8H 09/14/18 Dolutegravir Sodium [Tivicay] 50 mg PO DAILY 09/14/18 Famotidine [Pepcid] 40 mg PO DAILY 09/14/18 Gabapentin 400 mg PO TID 09/14/18 Oxycodone HCl/Acetaminophen 10 mg PO QID 09/14/18 [Oxycodone-Acetaminophen 10-325] Zolpidem Tartrate [Ambien] 5 mg PO HS 09/14/18 Allergies Allergy/AdvReac Type Severity Reaction Status Date / Time Beta-Adrenergic Agents Allergy Verified 09/12/18 17:00 PHYSICAL EXAM: GENERAL: Awake, alert, and fully oriented, in no acute distress. HEAD: Normal with no signs of trauma. EYES: sclera anicteric, conjunctiva clear. NECK: Normal ROM, supple without lymphadenopathy, JVD, or masses. ABDOMEN: Soft, nontender, not distended, normoactive bowel sounds, no guarding, no rebound, no masses. No organomegaly. MUSCULOSKELETAL: Normal ROM at all joints. No bony deformities or tenderness. No CVA tenderness. UPPER EXTREMITIES: 2+ pulses, warm, well-perfused. No cyanosis. Cap refill <2 seconds. No peripheral edema. LOWER EXTREMITIES: 2+ pulses, warm, well-perfused. No calf tenderness. No peripheral edema. NEUROLOGICAL: Normal speech, gait not observed. PSYCH: Cooperative. Good eye contact. Appropriate mood and affect. SKIN: Warm, dry, normal turgor, no rashes or lesions noted. Breasts: Left breast mass; nipple areola complex normal b/l; left axillary adenopathy; o/w negative. Vital Signs Temperature 98.5 F 09/15/18 06:00 Pulse Rate 61 09/15/18 06:00 Respiratory Rate 20 09/15/18 06:00 Blood Pressure 131/69 09/15/18 06:00 O2 Sat by Pulse Oximetry (%) 100 09/14/18 21:00 Lab Results WBC 2.5 K/mm3 (4.0-10.0) L 09/15/18 06:40 RBC 3.91 M/mm3 (3.60-5.2) 09/15/18 06:40 Hgb 11.9 GM/dL (10.7-15.3) 09/15/18 06:40 Hct 37.1 % (32.4-45.2) 09/15/18 06:40 MCV 94.9 fl (80-96) 09/15/18 06:40 MCHC 32.2 g/dl (32.0-36.0) 09/15/18 06:40 RDW 13.1 % (11.6-15.6) 09/15/18 06:40 Plt Count 67 K/MM3 (134-434) L D 09/15/18 06:40 Sodium 145 mmol/L (136-145) 09/15/18 06:40 Potassium 3.7 mmol/L (3.5-5.1) 09/15/18 06:40 Chloride 117 mmol/L (98-107) H 09/15/18 06:40 Carbon Dioxide 22 mmol/L (21-32) 09/15/18 06:40 Anion Gap 7 MMOL/L (8-16) L 09/15/18 06:40 BUN 20 mg/dL (7-18) H 09/15/18 06:40 Creatinine 1.7 mg/dL (0.55-1.3) H 09/15/18 06:40 Random Glucose 92 mg/dL (74-106) 09/15/18 06:40 Calcium 7.0 mg/dL (8.5-10.1) L 09/15/18 06:40 w/u to date reviewed IMP: left breast mass; r/o malignancy PLAN: USG left breast and axilla bx.; further tx. pending those results. Siddhartha Joseph MD FACS
--- NOTE | 2018-09-15 16:47 | PN ---
Progress Note, Physician History of Present Illness: Pt seen and examined at bedside. She is awake and alert. She denies shortness of breath. - Current Medication List Current Medications: Active Medications Acetaminophen/Codeine Phosphate (Tylenol # 3 -) 1 tab PO Q8H PRN PRN Reason: PAIN LEVEL 4 - 6 Last Admin: 09/14/18 22:40 Dose: 1 tab Atovaquone (Mepron -) 1,500 mg PO DAILY@0800 [facility] Last Admin: 09/15/18 10:44 Dose: 1,500 mg Fluconazole (Diflucan -) 100 mg PO DAILY [facility] Last Admin: 09/15/18 10:44 Dose: 100 mg Heparin Sodium (Porcine) (Heparin -) 5,000 unit SQ TID [facility] Last Admin: 09/15/18 13:37 Dose: 5,000 unit Sodium Chloride (Normal Saline -) 1,000 mls @ 100 mls/hr IV ASDIR [facility] Last Admin: 09/15/18 02:31 Dose: 100 mls/hr Nystatin (Nystatin Oral Suspension -) 500,000 units PO Q6HPO [facility] Last Admin: 09/15/18 13:37 Dose: 500,000 units Tramadol HCl (Ultram -) 50 mg PO Q6H PRN PRN Reason: PAIN LEVEL 6-10 Last Admin: 09/15/18 06:23 Dose: 50 mg - Objective Vital Signs: Vital Signs Temperature 98.4 F 09/15/18 10:00 Pulse Rate 66 09/15/18 10:00 Respiratory Rate 20 09/15/18 10:00 Blood Pressure 130/68 09/15/18 10:00 O2 Sat by Pulse Oximetry (%) 98 09/15/18 09:00 Constitutional: Yes: Calm Eyes: Yes: Conjunctiva Clear HENT: Yes: Atraumatic Neck: Yes: Supple Cardiovascular: Yes: S1, S2 Respiratory: Yes: CTA Bilaterally Gastrointestinal: Yes: Soft Genitourinary: Yes: WNL Musculoskeletal: Yes: WNL Edema: No Neurological: Yes: Oriented Psychiatric: Yes: Oriented Labs: CBC, BMP 09/15/18 06:40 09/15/18 06:40 Problem List - Problems (1) CKD (chronic kidney disease) Code(s): N18.9 - CHRONIC KIDNEY DISEASE, UNSPECIFIED (2) HTN (hypertension) Code(s): I10 - ESSENTIAL (PRIMARY) HYPERTENSION Qualifiers: Hypertension type: essential hypertension Qualified Code(s): I10 - Essential (primary) hypertension (3) COPD (chronic obstructive pulmonary disease) Code(s): J44.9 - CHRONIC OBSTRUCTIVE PULMONARY DISEASE, UNSPECIFIED (4) AIDS Code(s): B20 - HUMAN IMMUNODEFICIENCY VIRUS [HIV] DISEASE (5) Breast mass Code(s): N63.0 - UNSPECIFIED LUMP IN UNSPECIFIED BREAST (6) HIV (human immunodeficiency virus infection) Code(s): B20 - HUMAN IMMUNODEFICIENCY VIRUS [HIV] DISEASE Assessment/Plan Current Medications Generic Name Dose Route Start Last Admin Trade Name Freq PRN Reason Stop Dose Admin Acetaminophen/Codeine Phosphate 1 tab 09/13/18 13:33 09/14/18 22:40 Tylenol # 3 - PO 1 tab Q8H PRN Administration PAIN LEVEL 4 - 6 Atovaquone 1,500 mg 09/14/18 10:15 09/15/18 10:44 Mepron - PO 1,500 mg DAILY@0800 TIMMY Administration Fluconazole 100 mg 09/14/18 10:15 09/15/18 10:44 Diflucan - PO 100 mg DAILY TIMMY Administration Heparin Sodium (Porcine) 5,000 unit 09/13/18 06:00 09/15/18 13:37 Heparin - SQ 5,000 unit TID TIMMY Administration Sodium Chloride 1,000 mls @ 100 mls/hr 09/13/18 00:15 09/15/18 02:31 Normal Saline - IV 100 mls/hr ASDIR TIMMY Administration Nystatin 500,000 units 09/13/18 18:00 09/15/18 13:37 Nystatin Oral Suspension - PO 500,000 units Q6HPO TIMMY Administration Tramadol HCl 50 mg 09/14/18 12:26 09/15/18 06:23 Ultram - PO 50 mg Q6H PRN Administration PAIN LEVEL 6-10 Impression 1. CKD with unclear baseline 2. COPD 3. HTN 4. HIV not on haart 5. breast mass 6. etoh abuse 7. crack use 8. schizzoaffective 9. gerd 10. 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
[2018-09-15] MEDS ORDERED: SODIUM CHLORIDE 0.45% 1,000 ML IV SCH (17:00)
--- NOTE | 2018-09-15 18:52 | PN ---
Teaching Attending Note Name of Resident: Valentin Butler ATTENDING PHYSICIAN STATEMENT I saw and evaluated the patient. I reviewed the resident's note and discussed the case with the resident. I agree with the resident's findings and plan as documented. SUBJECTIVE: still complains of pain, states that is willing to get full W/U and treatment here OBJECTIVE: she is in no distress, MMM No occular discharge has a breast mass 5 cm i diameter, not erythema, not warm, states that is tender , is mobile, no skin changes. CVS:S1S2 CTAB Abd:bs+ nt/nd Ext: No rash Trush is improving ASSESSMENT AND PLAN: 58yo F with PMH HIV on HARRT, COPD, CHF, schizoaffective disease, CKD, continuous polysubstance abuse and long standing hx of non compliance with frequent AMA and lack of outpatient follow up presented to the ER from [facility] wtih L breast pain Breast mass: L breast mass- seen on u/s with +axillary LN. seen at multiple hospitals with U/S showing mass and supposedly mammogram done but no reports seen. birads 5 per previous report. was supposedly to f/u with Breast bx which she never did. spoke with breast surgeon who agrees with bx by IR under u/s guidance.likely malignancy, pending results of the biopsy for further management plan Cocain/ heroin abuse: not in withdrawal at this time, C/W current management.interested in returing to [facility] when medically optimized LINDA; is improving, will DC fluids and encourage for PO intake. avoid nephrotoxic medications. Nephro on board abnormal liver test: imaging done she needs to get MRCP But her renal function is not good at this time, will discuss with GI on Tuesday Trush: on fluconazole is improving HIV on HARRT- in April CD4 77, [place] [id number]. repeat sent here. was on bactrim and azithro and both have been stopped. (bactrim likely due to CKD). d/w ID as LFT are improved will re-start HARRT therapy. mepron for PCP ppx. will wait on starting azithro pednign repeat CD4 will need to med rec. will hold plavix as this time as unclear why pt is on . states for her CHF. claims no stents. states she last took plavix over a month ago
[2018-09-15] MEDS: ACETAMINOPHEN WITH CODEINE 300MG/30MG TABLET PO PRN (22:05)
[2018-09-16 00:07] LABS: HBSAG SCREEN Negative (Negative); HEP A AB, IGM Negative (Negative); HEP B CORE AB, TOT Negative (Negative)
[2018-09-16] MEDS: NYSTATIN 500,000 UNITS/5 ML SUSPENSION PO SCH ×5 (00:11→23:26)
[2018-09-16] MEDS ORDERED: diphenhydrAMINE HCL 25 MG CAPSULE (FP) PO ONE ×2 (02:30→22:03)
[2018-09-16] MEDS: HEPARIN NA (PORCINE) 5,000 UNITS/ML 1ML VIAL SQ SCH ×3 (05:41→22:04)
[2018-09-16] MEDS: ATOVAQUONE 750 MG/5 ML (UNIT-DOSE PACKAGING) PO SCH (08:15)
[2018-09-16 08:23] LABS: BASO % 1.2 % (0-2.0); EOS % 8.9 % (0-4.5); HEMATOCRIT 37.8 % (32.4-45.2); HEMOGLOBIN 12.2 GM/dL (10.7-15.3); LYMPH % 46.6 % (8-40); MCH 30.8 pg (25.7-33.7); MCHC 32.2 g/dl (32.0-36.0); MEAN CELL VOLUME 95.6 fl (80-96); MEAN PLT VOLUME 12.5 fl (7.5-11.1); MONO % 12.7 % (3.8-10.2); NEUT % 30.6 % (42.8-82.8); PLATELET COUNT 63 K/MM3 (134-434); RBC 3.96 M/mm3 (3.60-5.2); RDW 13.2 % (11.6-15.6); WHITE BLOOD COUNT 2.5 K/mm3 (4.0-10.0)
[2018-09-16 09:17] LABS: ALBUMIN 1.6 g/dl (3.4-5.0); ALK PHOS 61 U/L (45-117); ANION GAP 8 MMOL/L (8-16); BILIRUBIN,TOTAL 0.2 mg/dL (0.2-1); BLOOD UREA NITROGEN 20 mg/dL (7-18); CALCIUM 7.5 mg/dL (8.5-10.1); CHLORIDE 114 mmol/L (98-107); CO2 20 mmol/L (21-32); CREATININE 1.7 mg/dL (0.55-1.3); GLUCOSE,RANDOM 74 mg/dL (74-106); POTASSIUM 4.1 mmol/L (3.5-5.1); SGOT/AST 113 U/L (15-37); SGPT/ALT 72 U/L (13-61); SODIUM 143 mmol/L (136-145); TOT PROT 5.2 g/dl (6.4-8.2)
[2018-09-16] MEDS: DARUNAVIR 800 MG/COBICISTAT 150MG TABLET PO SCH (09:57)
[2018-09-16] MEDS: DOLUTEGRAVIR SODIUM 50 MG TABLET (NON-FORMULARY) PO SCH (09:57)
[2018-09-16] MEDS: FLUCONAZOLE 100 MG TABLET (UD) PO SCH (09:57)
[2018-09-16] MEDS ORDERED: PT OWN MED DRAWER 7, Y5N ONE (10:38)
--- NOTE | 2018-09-16 12:11 | EKG ---
Test Reason : Blood Pressure : / mmHG Vent. Rate : 064 BPM Atrial Rate : 064 BPM P-R Int : 148 ms QRS Dur : 080 ms QT Int : 412 ms P-R-T Axes : 055 043 051 degrees QTc Int : 425 ms NORMAL SINUS RHYTHM NORMAL ECG WHEN COMPARED WITH ECG OF 13-SEP-2018 02:38, NO SIGNIFICANT CHANGE WAS FOUND Confirmed by MARK PECK MD ([id number]) on 09/16/2018 12:11:31 PM Referred By: Confirmed By:MARK PECK MD
--- NOTE | 2018-09-16 13:27 | PN ---
Physical Exam: SUBJECTIVE: Patient seen and examined, still complaints of pain while in no distress and was sleeping when I interned the room OBJECTIVE: Vital Signs Period Temp Pulse Resp BP Sys/Lr Pulse Ox Last 24 Hr 98.1 F-98.9 F 55-88 18-20 124-138/64-83 she is in no distress, MMM No occular discharge has a breast mass 5 cm i diameter, not erythema, not warm, states that is tender , is mobile, no skin changes. CVS:S1S2 CTAB Abd:bs+ nt/nd Ext: No rash Trush is improving Laboratory Results - last 24 hr 09/13/18 09/14/18 09/16/18 05:20 06:30 06:15 WBC 2.5 L RBC 3.96 Hgb 12.2 Hct 37.8 MCV 95.6 MCH 30.8 MCHC 32.2 RDW 13.2 Plt Count 63 L MPV 12.5 H Absolute Neuts (auto) 0.8 L Neutrophils % 30.6 L Lymphocytes % 46.6 H Monocytes % 12.7 H Eosinophils % 8.9 H Basophils % 1.2 Nucleated RBC % 0 Sodium Potassium Chloride Carbon Dioxide Anion Gap BUN Creatinine Creat Clearance w eGFR Random Glucose Calcium Total Bilirubin AST ALT Alkaline Phosphatase Total Protein Albumin DELPHINE Screen Negative Hep A IgM Ab Confirm Negative Hepatitis A Ab Total Positive H Hep Bs Antigen Negative Hep Bs Antibody Non reactive Hep B Core Total Ab Negative 09/16/18 06:15 WBC RBC Hgb Hct MCV MCH MCHC RDW Plt Count MPV Absolute Neuts (auto) Neutrophils % Lymphocytes % Monocytes % Eosinophils % Basophils % Nucleated RBC % Sodium 143 Potassium 4.1 Chloride 114 H Carbon Dioxide 20 L Anion Gap 8 BUN 20 H Creatinine 1.7 H Creat Clearance w eGFR 30.98 Random Glucose 74 Calcium 7.5 L Total Bilirubin 0.2 AST 113 H ALT 72 H Alkaline Phosphatase 61 Total Protein 5.2 L Albumin 1.6 L DELPHINE Screen Hep A IgM Ab Confirm Hepatitis A Ab Total Hep Bs Antigen Hep Bs Antibody Hep B Core Total Ab Active Medications Generic Name Dose Route Start Last Admin Trade Name Freq PRN Reason Stop Dose Admin Acetaminophen/Codeine Phosphate 1 tab 09/13/18 13:33 09/15/18 22:05 Tylenol # 3 - PO 1 tab Q8H PRN Administration PAIN LEVEL 4 - 6 Atovaquone 1,500 mg 09/14/18 10:15 09/16/18 08:15 Mepron - PO 1,500 mg DAILY@0800 TIMMY Administration Fluconazole 100 mg 09/14/18 10:15 09/16/18 09:57 Diflucan - PO 100 mg DAILY TIMMY Administration Heparin Sodium (Porcine) 5,000 unit 09/13/18 06:00 09/16/18 05:41 Heparin - SQ 5,000 unit TID TIMMY Administration Nystatin 500,000 units 09/13/18 18:00 09/16/18 11:49 Nystatin Oral Suspension - PO 500,000 units Q6HPO TIMMY Administration Tramadol HCl 50 mg 09/14/18 12:26 09/15/18 06:23 Ultram - PO 50 mg Q6H PRN Administration PAIN LEVEL 6-10 ASSESSMENT/PLAN: 58yo F with PMH HIV on HARRT, COPD, CHF, schizoaffective disease, CKD, continuous polysubstance abuse and long standing hx of non compliance with frequent AMA and lack of outpatient follow up presented to the ER from [facility] wtih L breast pain Breast mass: L breast mass- seen on u/s with +axillary LN. seen at multiple hospitals with U/S showing mass and supposedly mammogram done but no reports seen. birads 5 per previous report. was supposedly to f/u with Breast bx which she never did. spoke with breast surgeon who agrees with bx by IR under u/s guidance.likely malignancy, pending results of the biopsy for further management plan Cocain/ heroin abuse: not in withdrawal at this time, C/W current management.interested in returing to [facility] when medically optimized LINDA; is improving, will DC fluids and encourage for PO intake. avoid nephrotoxic medications. Nephro on board abnormal liver test: imaging done she needs to get MRCP But her renal function is not good at this time, will discuss with GI on Tuesday Trush: on fluconazole is improving HIV on HARRT- in April CD4 77, [place] [id number]. repeat sent here. was on bactrim and azithro and both have been stopped. (bactrim likely due to CKD). d/w ID as LFT are improved will re-start HARRT therapy. mepron for PCP ppx. will wait on starting azithro pednign repeat CD4 will need to med rec. will hold plavix as this time as unclear why pt is on . states for her CHF. claims no stents. states she last took plavix over a month ago DVT ppx- hep sq Visit type - Emergency Visit Emergency Visit: Yes ED Registration Date: 09/12/18 Care time: The patient presented to the Emergency Department on the above date and was hospitalized for further evaluation of their emergent condition. - New Patient This patient is new to me today: No - Critical Care Critical Care patient: No - Discharge Referral Referred to [facility] Med P.C.: No
[2018-09-16] MEDS: traMADol HCL 50 MG TABLET PO PRN (22:04)
[2018-09-17] MEDS: HEPARIN NA (PORCINE) 5,000 UNITS/ML 1ML VIAL SQ SCH ×3 (05:09→22:11)
[2018-09-17] MEDS: NYSTATIN 500,000 UNITS/5 ML SUSPENSION PO SCH ×4 (05:09→23:54)
[2018-09-17] MEDS: traMADol HCL 50 MG TABLET PO PRN (05:10)
[2018-09-17] MEDS ORDERED: PT OWN MED DRAWER 7, Y5N ONE (08:53)
[2018-09-17] MEDS: ATOVAQUONE 750 MG/5 ML (UNIT-DOSE PACKAGING) PO SCH (09:12)
[2018-09-17] MEDS: FLUCONAZOLE 100 MG TABLET (UD) PO SCH (09:12)
[2018-09-17] MEDS: DARUNAVIR 800 MG/COBICISTAT 150MG TABLET PO SCH (09:13)
[2018-09-17] MEDS: DOLUTEGRAVIR SODIUM 50 MG TABLET (NON-FORMULARY) PO SCH (09:13)
[2018-09-17] MEDS ORDERED: ACETAMINOPHEN WITH CODEINE 300MG/30MG TABLET PO PRN (13:43)
[2018-09-17] MEDS ORDERED: DOCUSATE SODIUM 100 MG CAPSULE (FP) PO PRN (13:43)
--- NOTE | 2018-09-17 14:02 | PN ---
Physical Exam: SUBJECTIVE: Patient seen and examinedm, she complains of constipation OBJECTIVE: Vital Signs Period Temp Pulse Resp BP Sys/Lr Pulse Ox Last 24 Hr 97.8 F-98.3 F 54-88 18-20 132-140/66-79 100 she is in no distress, MMM No occular discharge has a breast mass 5 cm i diameter, not erythema, not warm, states that is tender , is mobile, no skin changes. CVS:S1S2 CTAB Abd:bs+ nt/nd Ext: No rash Trush is improving Active Medications Generic Name Dose Route Start Last Admin Trade Name Freq PRN Reason Stop Dose Admin Acetaminophen/Codeine Phosphate 1 tab 09/17/18 13:43 Tylenol # 3 - PO Q4H PRN PAIN LEVEL 4 - 6 Atovaquone 1,500 mg 09/14/18 10:15 09/17/18 09:12 Mepron - PO 1,500 mg DAILY@0800 TIMMY Administration Diphenhydramine HCl 25 mg 09/17/18 13:43 Benadryl - PO Q6H PRN FOR ITCHING Docusate Sodium 100 mg 09/17/18 13:43 Colace - PO Q8H PRN CONSTIPATION Fluconazole 100 mg 09/14/18 10:15 09/17/18 09:12 Diflucan - PO 100 mg DAILY TIMMY Administration Heparin Sodium (Porcine) 5,000 unit 09/13/18 06:00 09/17/18 13:53 Heparin - SQ 5,000 unit TID TIMMY Administration Nystatin 500,000 units 09/13/18 18:00 09/17/18 11:47 Nystatin Oral Suspension - PO 500,000 units Q6HPO TIMMY Administration ASSESSMENT/PLAN: 58yo F with PMH HIV on HARRT, COPD, CHF, schizoaffective disease, CKD, continuous polysubstance abuse and long standing hx of non compliance with frequent AMA and lack of outpatient follow up presented to the ER from [facility] L breast pain Breast mass: L breast mass- seen on u/s with +axillary LN. seen at multiple hospitals with U/S showing mass and supposedly mammogram done but no reports seen. birads 5 per previous report. was supposedly to f/u with Breast bx which she never did. spoke with breast surgeon who agrees with bx by IR under u/s guidance.likely malignancy, pending results of the biopsy for further management plan Cocain/ heroin abuse: not in withdrawal at this time, C/W current management.interested in returing to [facility] when medically optimized LINDA; is improving, will DC fluids and encourage for PO intake. avoid nephrotoxic medications. Nephro on board abnormal liver test: imaging done she needs to get MRCP But her renal function is not good at this time, will discuss with GI on Tuesday Trush: on fluconazole is improving HIV on HARRT- in April CD4 77, [place] [id number]. repeat sent here. was on bactrim and azithro and both have been stopped. (bactrim likely due to CKD). d/w ID as LFT are improved will re-start HARRT therapy. mepron for PCP ppx. will wait on starting azithro pednign repeat CD4 will need to med rec. will hold plavix as this time as unclear why pt is on . states for her CHF. claims no stents. states she last took plavix over a month ago DVT ppx- hep sq Visit type - Emergency Visit Emergency Visit: Yes ED Registration Date: 09/12/18 Care time: The patient presented to the Emergency Department on the above date and was hospitalized for further evaluation of their emergent condition. - New Patient This patient is new to me today: No - Critical Care Critical Care patient: No - Discharge Referral Referred to [facility] Med P.C.: No
[2018-09-17] MEDS ORDERED: ONDANSETRON 4 MG/2 ML VIAL IVPUSH ONE (15:09)
[2018-09-17] MEDS: diphenhydrAMINE HCL 25 MG CAPSULE (FP) PO PRN (22:11)
[2018-09-18] MEDS: NYSTATIN 500,000 UNITS/5 ML SUSPENSION PO SCH ×3 (06:18→18:02)
[2018-09-18] MEDS: HEPARIN NA (PORCINE) 5,000 UNITS/ML 1ML VIAL SQ SCH ×4 (06:18→22:13)
[2018-09-18] MEDS ORDERED: PT OWN MED DRAWER 7, Y5N ONE ×3 (08:36→20:42)
[2018-09-18] MEDS: ATOVAQUONE 750 MG/5 ML (UNIT-DOSE PACKAGING) PO SCH (08:41)
--- NOTE | 2018-09-18 08:52 | PN ---
Progress Note (short form) - Note Progress Note: Known left breast mass had an imaging w/u elsewhere. Need to r/o malignancy. PLAN: 1. USG left breast and axilla bx 2. further tx. pending those results.
[2018-09-18 10:07] LABS: ANTIGLOMERULAR BASEMENT MEN.AB 4 units (0-20)
--- NOTE | 2018-09-18 10:45 | PN ---
Progress Note (short form) - Note Progress Note: still with breast pain reports vomiting yesterday Vital Signs Period Temp Pulse Resp BP Sys/Lr Pulse Ox Last 24 Hr 98.2 F-98.4 F 57-60 18-20 92-125/54-72 100 cor-rrr lungs clear abd soft,nt ext no edema CBC, BMP 09/16/18 06:15 09/16/18 06:15 ultrasound with CBD 1.4 cm cd4 71 a/p AIDS with breast mass, thrush, dilated CBD LFTs - f/u hep c serology can resume tivicay/prezcobix for breast biopsy needs imaging of dilated CBD thrush improved on diflucan continue mepron for pcp propylaxis substance use ckd- avoid bactrim for now will need to return to her clinic in [place] on discharge Problem List - Problems (1) HIV (human immunodeficiency virus infection) Code(s): B20 - HUMAN IMMUNODEFICIENCY VIRUS [HIV] DISEASE (2) Abnormal LFTs Code(s): R94.5 - ABNORMAL RESULTS OF LIVER FUNCTION STUDIES (3) Breast mass Code(s): N63.0 - UNSPECIFIED LUMP IN UNSPECIFIED BREAST (4) Renal insufficiency Code(s): N28.9 - DISORDER OF KIDNEY AND URETER, UNSPECIFIED
[2018-09-18] MEDS: DOLUTEGRAVIR SODIUM 50 MG TABLET (NON-FORMULARY) PO SCH (11:06)
[2018-09-18] MEDS: FLUCONAZOLE 100 MG TABLET (UD) PO SCH (11:06)
[2018-09-18] MEDS: DARUNAVIR 800 MG/COBICISTAT 150MG TABLET PO SCH (11:07)
--- NOTE | 2018-09-18 11:27 | PN ---
Progress Note, Physician Chief Complaint: No new complaints History of Present Illness: 58 year old woman who has COPD, GERD, HTN, Tobacco use, Schizoaffective disorder , LINDA?, HIV/AIDS (stopped HAART for several months), and left breast mass suspicious for malignancy who presents for evaluation of left breast mass pain she reports has been constant for several months. W/U shows LINDA, Dilated CBD and Left Breast mass awaiting w/u - Current Medication List Current Medications: Active Medications Acetaminophen/Codeine Phosphate (Tylenol # 3 -) 1 tab PO Q4H PRN PRN Reason: PAIN LEVEL 4 - 6 Atovaquone (Mepron -) 1,500 mg PO DAILY@0800 [facility] Last Admin: 09/18/18 08:41 Dose: 1,500 mg Diphenhydramine HCl (Benadryl -) 25 mg PO Q6H PRN PRN Reason: FOR ITCHING Last Admin: 09/17/18 22:11 Dose: 25 mg Docusate Sodium (Colace -) 100 mg PO Q8H PRN PRN Reason: CONSTIPATION Fluconazole (Diflucan -) 100 mg PO DAILY [facility] Last Admin: 09/18/18 11:06 Dose: 100 mg Heparin Sodium (Porcine) (Heparin -) 5,000 unit SQ TID [facility] Last Admin: 09/18/18 06:23 Dose: Not Given Nystatin (Nystatin Oral Suspension -) 500,000 units PO Q6HPO [facility] Last Admin: 09/18/18 11:07 Dose: 500,000 units - Objective Vital Signs: Vital Signs Temperature 98.4 F 09/18/18 06:48 Pulse Rate 60 09/18/18 06:48 Respiratory Rate 20 09/18/18 06:48 Blood Pressure 92/54 L 09/18/18 06:48 O2 Sat by Pulse Oximetry (%) 100 09/17/18 23:55 middle aged F not in distress HEENT: Mm moist mild anemia NECK: no JVd No Bruit CHEST: Left Breast palpable mass CTA B/L CXVS: s1S2 R no m/g/r ABD: non tender Bs + EXT; No edema feet CT SCAN TECH: AOX3 non focal Labs: CBC, BMP 09/16/18 06:15 09/16/18 06:15 Problem List - Problems (1) Polysubstance abuse Assessment/Plan: active Cocaine and ETOH Code(s): F19.10 - OTHER PSYCHOACTIVE SUBSTANCE ABUSE, UNCOMPLICATED (2) Transaminitis Assessment/Plan: Due to substance abuse Code(s): R74.0 - NONSPEC ELEV OF LEVELS OF TRANSAMNS & LACTIC ACID DEHYDRGNSE (3) AIDS Code(s): B20 - HUMAN IMMUNODEFICIENCY VIRUS [HIV] DISEASE (4) Breast mass Assessment/Plan: Needs Biopsy will F/u surgery input Code(s): N63.0 - UNSPECIFIED LUMP IN UNSPECIFIED BREAST (5) LINDA (acute kidney injury) Assessment/Plan: Due to Dehydartion, now improving Code(s): N17.9 - ACUTE KIDNEY FAILURE, UNSPECIFIED (6) CKD (chronic kidney disease) Assessment/Plan: 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 Code(s): N18.9 - CHRONIC KIDNEY DISEASE, UNSPECIFIED (7) COPD (chronic obstructive pulmonary disease) Assessment/Plan: Cont MDIs Code(s): J44.9 - CHRONIC OBSTRUCTIVE PULMONARY DISEASE, UNSPECIFIED (8) HTN (hypertension) Assessment/Plan: Well controlled Code(s): I10 - ESSENTIAL (PRIMARY) HYPERTENSION Qualifiers: Hypertension type: essential hypertension Qualified Code(s): I10 - Essential (primary) hypertension (9) Oral thrush Assessment/Plan: Improving on Nystatin Code(s): B37.0 - CANDIDAL STOMATITIS (10) Dilated cbd, acquired Assessment/Plan: Needs evaluation once renal functions improves Code(s): K83.8 - OTHER SPECIFIED DISEASES OF BILIARY TRACT
--- NOTE | 2018-09-18 14:32 | PN ---
Progress Note, Physician History of Present Illness: Pt seen and examined at bedside. She is awake and appears comfortable. She denies edema or shortness of breath. - Current Medication List Current Medications: Active Medications Acetaminophen/Codeine Phosphate (Tylenol # 3 -) 1 tab PO Q4H PRN PRN Reason: PAIN LEVEL 4 - 6 Atovaquone (Mepron -) 1,500 mg PO DAILY@0800 [facility] Last Admin: 09/18/18 08:41 Dose: 1,500 mg Diphenhydramine HCl (Benadryl -) 25 mg PO Q6H PRN PRN Reason: FOR ITCHING Last Admin: 09/17/18 22:11 Dose: 25 mg Docusate Sodium (Colace -) 100 mg PO Q8H PRN PRN Reason: CONSTIPATION Fluconazole (Diflucan -) 100 mg PO DAILY [facility] Last Admin: 09/18/18 11:06 Dose: 100 mg Heparin Sodium (Porcine) (Heparin -) 5,000 unit SQ TID [facility] Last Admin: 09/18/18 06:23 Dose: Not Given Nystatin (Nystatin Oral Suspension -) 500,000 units PO Q6HPO [facility] Last Admin: 09/18/18 11:07 Dose: 500,000 units - Objective Vital Signs: Vital Signs Temperature 98.4 F 09/18/18 06:48 Pulse Rate 60 09/18/18 06:48 Respiratory Rate 20 09/18/18 06:48 Blood Pressure 92/54 L 09/18/18 06:48 O2 Sat by Pulse Oximetry (%) 100 09/17/18 23:55 Constitutional: Yes: Calm Eyes: Yes: Conjunctiva Clear HENT: Yes: Atraumatic Neck: Yes: Supple Cardiovascular: Yes: S1, S2 Respiratory: Yes: CTA Bilaterally Gastrointestinal: Yes: Soft Genitourinary: Yes: WNL Musculoskeletal: Yes: WNL Edema: No Neurological: Yes: Oriented Psychiatric: Yes: Oriented Labs: CBC, BMP 09/16/18 06:15 09/16/18 06:15 Problem List - Problems (1) CKD (chronic kidney disease) Code(s): N18.9 - CHRONIC KIDNEY DISEASE, UNSPECIFIED (2) HTN (hypertension) Code(s): I10 - ESSENTIAL (PRIMARY) HYPERTENSION Qualifiers: Hypertension type: essential hypertension Qualified Code(s): I10 - Essential (primary) hypertension (3) COPD (chronic obstructive pulmonary disease) Code(s): J44.9 - CHRONIC OBSTRUCTIVE PULMONARY DISEASE, UNSPECIFIED (4) AIDS Code(s): B20 - HUMAN IMMUNODEFICIENCY VIRUS [HIV] DISEASE (5) Breast mass Code(s): N63.0 - UNSPECIFIED LUMP IN UNSPECIFIED BREAST (6) HIV (human immunodeficiency virus infection) Code(s): B20 - HUMAN IMMUNODEFICIENCY VIRUS [HIV] DISEASE Assessment/Plan Current Medications Generic Name Dose Route Start Last Admin Trade Name Freq PRN Reason Stop Dose Admin Acetaminophen/Codeine Phosphate 1 tab 09/17/18 13:43 Tylenol # 3 - PO Q4H PRN PAIN LEVEL 4 - 6 Atovaquone 1,500 mg 09/14/18 10:15 09/18/18 08:41 Mepron - PO 1,500 mg DAILY@0800 [facility] Administration Diphenhydramine HCl 25 mg 09/17/18 13:43 09/17/18 22:11 Benadryl - PO 25 mg Q6H PRN Administration FOR ITCHING Docusate Sodium 100 mg 09/17/18 13:43 Colace - PO Q8H PRN CONSTIPATION Fluconazole 100 mg 09/14/18 10:15 09/18/18 11:06 Diflucan - PO 100 mg DAILY TIMMY Administration Heparin Sodium (Porcine) 5,000 unit 09/13/18 06:00 09/18/18 06:23 Heparin - SQ Not Given TID TIMMY Nystatin 500,000 units 09/13/18 18:00 09/18/18 11:07 Nystatin Oral Suspension - PO 500,000 units Q6HPO TIMMY Administration Laboratory Tests 09/14/18 06:30 CATHIE M-Herson Pending DELPHINE Screen Negative c-ANCA Pending Proteinase 3 (PR3) Pending p-ANCA Pending Atypical p-ANCA Pending Myeloperoxidase Ab Pending Glomerular Base Memb Ab 4 Impression 1. CKD with unclear baseline 2. COPD 3. HTN 4. HIV not on haart 5. breast mass 6. etoh abuse 7. crack use 8. schizzoaffective 9. gerd 10. nephrotic range proteinuria Plan - repeat ua - will need outpt follow up for renal workup and possible kidney biopsy - breast mass workup in progress - will monitor renal function - differntial is broad, she does need to restart her HIV treatment - discussed plan with pt - discussed with medical team - avoid nsaids - will follow Dr Arrington
[2018-09-18 16:16] LABS: ATYPICAL pANCA <1:20 titer (Neg:<1:20); C-ANCA <1:20 titer (Neg:<1:20); P-ANCA <1:20 titer (Neg:<1:20)
[2018-09-18 17:58] LABS: URINE APPEARANCE SLCLOUDY; URINE BILIRUBIN NEGATIVE (<2.0 mg/dL); URINE COLOR LTYELLOW; URINE GLUCOSE (UA) 1+ (NEGATIVE); URINE KETONE NEGATIVE (NEGATIVE); URINE LEUK ESTERASE TRACE (NEGATIVE); URINE NITRITE NEGATIVE (NEGATIVE); URINE PROTEIN 3+ (NEGATIVE); URINE UROBILINOGEN NEGATIVE mg/dL (0.2-1.0)
[2018-09-18 17:59] LABS: EPI CELLS RARE /HPF (FEW); URINE MUCUS RARE
[2018-09-18] MEDS: ONDANSETRON *ODT* 4 MG TABLET SL PRN (18:02)
[2018-09-18] MEDS: RANITIDINE HCL 150 MG TABLET (FP) PO SCH (18:02)
[2018-09-18] MEDS ORDERED: ZOLPIDEM TARTRATE 5 MG TABLET PO PRN (22:00)
[2018-09-18] MEDS: GABAPENTIN 400 MG CAPSULE (FP) PO SCH (22:14)
[2018-09-18] MEDS: CYPROHEPTADINE HCL 4 MG TABLET PO SCH (22:49)
[2018-09-19] MEDS: NYSTATIN 500,000 UNITS/5 ML SUSPENSION PO SCH ×4 (00:08→17:07)
[2018-09-19] MEDS: HEPARIN NA (PORCINE) 5,000 UNITS/ML 1ML VIAL SQ SCH ×3 (06:04→21:42)
[2018-09-19] MEDS: GABAPENTIN 400 MG CAPSULE (FP) PO SCH ×3 (06:05→21:42)
[2018-09-19] MEDS: CYPROHEPTADINE HCL 4 MG TABLET PO SCH ×3 (06:05→21:43)
--- NOTE | 2018-09-19 07:35 | PN ---
Progress Note, Physician Chief Complaint: No new complaints History of Present Illness: 58 year old woman who has COPD, GERD, HTN, Tobacco use, Schizoaffective disorder , LINDA?, HIV/AIDS (stopped HAART for several months), and left breast mass suspicious for malignancy who presents for evaluation of left breast mass pain she reports has been constant for several months. W/U shows LINDA, Dilated CBD and Left Breast mass awaiting w/u - Current Medication List Current Medications: Active Medications Acetaminophen/Codeine Phosphate (Tylenol # 3 -) 1 tab PO Q4H PRN PRN Reason: PAIN LEVEL 4 - 6 Atovaquone (Mepron -) 1,500 mg PO DAILY@0800 [facility] Last Admin: 09/18/18 08:41 Dose: 1,500 mg Cyproheptadine HCl (Periactin -) 4 mg PO TID [facility] Last Admin: 09/19/18 06:05 Dose: 4 mg Diphenhydramine HCl (Benadryl -) 25 mg PO Q6H PRN PRN Reason: FOR ITCHING Last Admin: 09/17/18 22:11 Dose: 25 mg Docusate Sodium (Colace -) 100 mg PO Q8H PRN PRN Reason: CONSTIPATION Fluconazole (Diflucan -) 100 mg PO DAILY [facility] Last Admin: 09/18/18 11:06 Dose: 100 mg Gabapentin (Neurontin -) 400 mg PO TID [facility] Last Admin: 09/19/18 06:05 Dose: 400 mg Heparin Sodium (Porcine) (Heparin -) 5,000 unit SQ TID [facility] Last Admin: 09/19/18 06:04 Dose: 5,000 unit Nystatin (Nystatin Oral Suspension -) 500,000 units PO Q6HPO [facility] Last Admin: 09/19/18 06:05 Dose: Not Given Ondansetron HCl (Zofran Odt -) 4 mg SL Q8H PRN PRN Reason: NAUSEA Last Admin: 09/18/18 18:02 Dose: 4 mg Ranitidine HCl (Zantac -) 300 mg PO DAILY [facility] Last Admin: 09/18/18 18:02 Dose: 300 mg Zolpidem Tartrate (Ambien -) 5 mg PO HS PRN PRN Reason: INSOMNIA - Objective Vital Signs: Vital Signs Temperature 98.2 F 09/18/18 22:00 Pulse Rate 56 L 09/18/18 22:00 Respiratory Rate 20 09/18/18 22:00 Blood Pressure 110/58 L 09/18/18 22:00 O2 Sat by Pulse Oximetry (%) 100 09/18/18 21:00 middle aged F not in distress HEENT: Mm moist mild anemia NECK: no JVd No Bruit CHEST: Left Breast palpable mass CTA B/L CXVS: s1S2 R no m/g/r ABD: non tender Bs + EXT; No edema feet [employer]PER[employer]: AOX3 non focal Problem List - Problems (1) Polysubstance abuse Assessment/Plan: active Cocaine and ETOH Code(s): F19.10 - OTHER PSYCHOACTIVE SUBSTANCE ABUSE, UNCOMPLICATED (2) Transaminitis Assessment/Plan: Due to substance abuse Code(s): R74.0 - NONSPEC ELEV OF LEVELS OF TRANSAMNS & LACTIC ACID DEHYDRGNSE (3) AIDS Assessment/Plan: non complint with HAART on PCP Prophylaxis Code(s): B20 - HUMAN IMMUNODEFICIENCY VIRUS [HIV] DISEASE (4) Breast mass Assessment/Plan: Schedule for Biopsy tomorrow will F/u surgery input Code(s): N63.0 - UNSPECIFIED LUMP IN UNSPECIFIED BREAST (5) LINDA (acute kidney injury) Assessment/Plan: Due to Dehydrations, now improving Code(s): N17.9 - ACUTE KIDNEY FAILURE, UNSPECIFIED (6) CKD (chronic kidney disease) Assessment/Plan: 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
[2018-09-19 07:45] LABS: BASO % 1.2 % (0-2.0); EOS % 8.5 % (0-4.5); HEMATOCRIT 42.1 % (32.4-45.2); HEMOGLOBIN 14.5 GM/dL (10.7-15.3); LYMPH % 51.2 % (8-40); MCH 32.6 pg (25.7-33.7); MCHC 34.5 g/dl (32.0-36.0); MEAN CELL VOLUME 94.6 fl (80-96); MEAN PLT VOLUME 13.1 fl (7.5-11.1); MONO % 12.2 % (3.8-10.2); NEUT % 26.9 % (42.8-82.8); PLATELET COUNT 80 K/MM3 (134-434); RBC 4.45 M/mm3 (3.60-5.2); WHITE BLOOD COUNT 2.7 K/mm3 (4.0-10.0)
[2018-09-19 08:14] LABS: ALBUMIN 1.8 g/dl (3.4-5.0); ALK PHOS 79 U/L (45-117); ANION GAP 7 MMOL/L (8-16); BILIRUBIN,TOTAL 0.1 mg/dL (0.2-1); BLOOD UREA NITROGEN 24 mg/dL (7-18); CALCIUM 8.1 mg/dL (8.5-10.1); CHLORIDE 114 mmol/L (98-107); CO2 22 mmol/L (21-32); CREATININE 2.2 mg/dL (0.55-1.3); GLUCOSE,RANDOM 72 mg/dL (74-106); POTASSIUM 4.4 mmol/L (3.5-5.1); SGOT/AST 173 U/L (15-37); SGPT/ALT 116 U/L (13-61); SODIUM 143 mmol/L (136-145); TOT PROT 6.2 g/dl (6.4-8.2)
[2018-09-19] MEDS ORDERED: PT OWN MED DRAWER 7, Y5N ONE ×2 (10:08→21:37)
[2018-09-19] MEDS: DOLUTEGRAVIR SODIUM 50 MG TABLET (NON-FORMULARY) PO SCH (10:12)
[2018-09-19] MEDS: FLUCONAZOLE 100 MG TABLET (UD) PO SCH (10:12)
[2018-09-19] MEDS: RANITIDINE HCL 150 MG TABLET (FP) PO SCH (10:12)
[2018-09-19] MEDS: ATOVAQUONE 750 MG/5 ML (UNIT-DOSE PACKAGING) PO SCH ×2 (10:12→11:56)
[2018-09-19] MEDS: DARUNAVIR 800 MG/COBICISTAT 150MG TABLET PO SCH (10:13)
[2018-09-19 11:43] LABS: INR 0.93 (0.83-1.09)
[2018-09-19] MEDS: SODIUM CHLORIDE 0.45% 1,000 ML IV SCH (11:57)
--- NOTE | 2018-09-19 13:58 | PN ---
Progress Note, Physician History of Present Illness: Pt seen and examined at bedside. She is awake and alert. She denies shortness of breath. - Current Medication List Current Medications: Active Medications Acetaminophen/Codeine Phosphate (Tylenol # 3 -) 1 tab PO Q4H PRN PRN Reason: PAIN LEVEL 4 - 6 Atovaquone (Mepron -) 1,500 mg PO DAILY@0800 [facility] Last Admin: 09/19/18 11:56 Dose: Not Given Cyproheptadine HCl (Periactin -) 4 mg PO TID [facility] Last Admin: 09/19/18 06:05 Dose: 4 mg Diphenhydramine HCl (Benadryl -) 25 mg PO Q6H PRN PRN Reason: FOR ITCHING Last Admin: 09/17/18 22:11 Dose: 25 mg Docusate Sodium (Colace -) 100 mg PO Q8H PRN PRN Reason: CONSTIPATION Fluconazole (Diflucan -) 100 mg PO DAILY [facility] Last Admin: 09/19/18 10:12 Dose: 100 mg Gabapentin (Neurontin -) 400 mg PO TID [facility] Last Admin: 09/19/18 06:05 Dose: 400 mg Heparin Sodium (Porcine) (Heparin -) 5,000 unit SQ TID [facility] Last Admin: 09/19/18 06:04 Dose: 5,000 unit Sodium Chloride (1/2 Normal Saline) 1,000 mls @ 75 mls/hr IV ASDIR [facility] Last Admin: 09/19/18 11:57 Dose: 75 mls/hr Nystatin (Nystatin Oral Suspension -) 500,000 units PO Q6HPO [facility] Last Admin: 09/19/18 11:56 Dose: Not Given Ondansetron HCl (Zofran Odt -) 4 mg SL Q8H PRN PRN Reason: NAUSEA Last Admin: 09/18/18 18:02 Dose: 4 mg Ranitidine HCl (Zantac -) 300 mg PO DAILY [facility] Last Admin: 09/19/18 10:12 Dose: 300 mg Zolpidem Tartrate (Ambien -) 5 mg PO HS PRN PRN Reason: INSOMNIA - Objective Vital Signs: Vital Signs Temperature 98.5 F 09/19/18 07:36 Pulse Rate 53 L 09/19/18 07:36 Respiratory Rate 20 09/19/18 07:36 Blood Pressure 110/68 09/19/18 07:36 O2 Sat by Pulse Oximetry (%) 100 09/18/18 21:00 Constitutional: Yes: Calm Eyes: Yes: Conjunctiva Clear HENT: Yes: Atraumatic Neck: Yes: Supple Cardiovascular: Yes: S1, S2 Respiratory: Yes: CTA Bilaterally Gastrointestinal: Yes: Soft Genitourinary: Yes: WNL Musculoskeletal: Yes: WNL Edema: No Neurological: Yes: Oriented Psychiatric: Yes: Oriented Labs: CBC, BMP 09/19/18 06:15 09/19/18 06:15 INR, PTT INR 0.93 (0.83-1.09) 09/19/18 11:05 Problem List - Problems (1) CKD (chronic kidney disease) Code(s): N18.9 - CHRONIC KIDNEY DISEASE, UNSPECIFIED (2) HTN (hypertension) Code(s): I10 - ESSENTIAL (PRIMARY) HYPERTENSION Qualifiers: Hypertension type: essential hypertension Qualified Code(s): I10 - Essential (primary) hypertension (3) COPD (chronic obstructive pulmonary disease) Code(s): J44.9 - CHRONIC OBSTRUCTIVE PULMONARY DISEASE, UNSPECIFIED (4) AIDS Code(s): B20 - HUMAN IMMUNODEFICIENCY VIRUS [HIV] DISEASE (5) Breast mass Code(s): N63.0 - UNSPECIFIED LUMP IN UNSPECIFIED BREAST (6) HIV (human immunodeficiency virus infection) Code(s): B20 - HUMAN IMMUNODEFICIENCY VIRUS [HIV] DISEASE Assessment/Plan Current Medications Generic Name Dose Route Start Last Admin Trade Name Freq PRN Reason Stop Dose Admin Acetaminophen/Codeine Phosphate 1 tab 09/17/18 13:43 Tylenol # 3 - PO Q4H PRN PAIN LEVEL 4 - 6 Atovaquone 1,500 mg 09/14/18 10:15 09/19/18 11:56 Mepron - PO Not Given DAILY@0800 [facility] Cyproheptadine HCl 4 mg 09/18/18 22:00 09/19/18 06:05 Periactin - PO 4 mg TID [facility] Administration Diphenhydramine HCl 25 mg 09/17/18 13:43 09/17/18 22:11 Benadryl - PO 25 mg Q6H PRN Administration FOR ITCHING Docusate Sodium 100 mg 09/17/18 13:43 Colace - PO Q8H PRN CONSTIPATION Fluconazole 100 mg 09/14/18 10:15 09/19/18 10:12 Diflucan - PO 100 mg DAILY [facility] Administration Gabapentin 400 mg 09/18/18 22:00 09/19/18 06:05 Neurontin - PO 400 mg TID [facility] Administration Heparin Sodium (Porcine) 5,000 unit 09/13/18 06:00 09/19/18 06:04 Heparin - SQ 5,000 unit TID [facility] Administration Sodium Chloride 1,000 mls @ 75 mls/hr 09/19/18 11:15 09/19/18 11:57 1/2 Normal Saline IV 75 mls/hr ASDIR [facility] Administration Nystatin 500,000 units 09/13/18 18:00 09/19/18 11:56 Nystatin Oral Suspension - PO Not Given Q6HPO [facility] Ondansetron HCl 4 mg 09/18/18 17:07 09/18/18 18:02 Zofran Odt - SL 4 mg Q8H PRN Administration NAUSEA Ranitidine HCl 300 mg 09/18/18 17:15 09/19/18 10:12 Zantac - PO 300 mg DAILY [facility] Administration Zolpidem Tartrate 5 mg 09/18/18 22:00 Ambien - PO HS PRN INSOMNIA Laboratory Tests 09/13/18 09/14/18 20:30 06:30 Opiates Screen Positive A* Benzodiazepines Screen Positive A* Cocaine Screen Positive A* CATHIE M-Herson Not observed DELPHINE Screen Negative c-ANCA <1:20 Proteinase 3 (PR3) <3.5 p-ANCA <1:20 Atypical p-ANCA <1:20 Myeloperoxidase Ab <9.0 Glomerular Base Memb Ab 4 Impression 1. CKD with unclear baseline 2. COPD 3. HTN 4. HIV not on haart 5. breast mass 6. etoh abuse 7. crack use 8. schizzoaffective 9. gerd 10. nephrotic range proteinuria Plan - pt going for breast biopsy - discussed renal failure and proteinuria with pt. She lives in [place] and will follow with her PMD and nephrology there. She would not like any more renal workup in the hospital. She says she is more concerned about her breast - monitor lytes - will need to resume HIV treatment, pt is not compliant with med or with follow up - avoid nsaids - will follow Dr Arrington
[2018-09-20] MEDS: NYSTATIN 500,000 UNITS/5 ML SUSPENSION PO SCH ×4 (00:32→17:06)
[2018-09-20] MEDS: CYPROHEPTADINE HCL 4 MG TABLET PO SCH ×3 (06:27→21:12)
[2018-09-20] MEDS: GABAPENTIN 400 MG CAPSULE (FP) PO SCH ×3 (06:27→21:10)
[2018-09-20 08:21] LABS: INR 0.92 (0.83-1.09); PROTHROMBIN TIME (PATIENT) 10.9 SEC (9.7-13.0)
[2018-09-20 08:30] LABS: ANION GAP 7 MMOL/L (8-16); BLOOD UREA NITROGEN 25 mg/dL (7-18); CALCIUM 8.2 mg/dL (8.5-10.1); CHLORIDE 111 mmol/L (98-107); CO2 26 mmol/L (21-32); CREATININE 2.4 mg/dL (0.55-1.3); GLUCOSE,RANDOM 84 mg/dL (74-106); POTASSIUM 4.1 mmol/L (3.5-5.1); SODIUM 143 mmol/L (136-145)
[2018-09-20 08:36] LABS: BASO % 1.3 % (0-2.0); EOS % 7.3 % (0-4.5); HEMOGLOBIN 14.1 GM/dL (10.7-15.3); MCH 31.2 pg (25.7-33.7); MCHC 32.7 g/dl (32.0-36.0); MEAN CELL VOLUME 95.3 fl (80-96); MEAN PLT VOLUME 13.2 fl (7.5-11.1); MONO % 11.2 % (3.8-10.2); NEUT % 35.2 % (42.8-82.8); PLATELET COUNT 79 K/MM3 (134-434); RBC 4.52 M/mm3 (3.60-5.2); RDW 13.3 % (11.6-15.6); WHITE BLOOD COUNT 3.7 K/mm3 (4.0-10.0)
[2018-09-20] MEDS: RANITIDINE HCL 150 MG TABLET (FP) PO SCH (11:04)
[2018-09-20] MEDS: ATOVAQUONE 750 MG/5 ML (UNIT-DOSE PACKAGING) PO SCH (11:05)
[2018-09-20] MEDS: DOLUTEGRAVIR SODIUM 50 MG TABLET (NON-FORMULARY) PO SCH (11:06)
[2018-09-20] MEDS: DARUNAVIR 800 MG/COBICISTAT 150MG TABLET PO SCH (11:06)
--- NOTE | 2018-09-20 11:50 | PN ---
Progress Note, Physician History of Present Illness: Pt seen and examined at bedside. She is awake and alert. She had her breast biopsy done. She denies shortness of breath. - Current Medication List Current Medications: Active Medications Acetaminophen/Codeine Phosphate (Tylenol # 3 -) 1 tab PO Q4H PRN PRN Reason: PAIN LEVEL 4 - 6 Last Admin: 09/20/18 11:01 Dose: 1 tab Atovaquone (Mepron -) 1,500 mg PO DAILY@0800 [facility] Last Admin: 09/20/18 11:05 Dose: 1,500 mg Cyproheptadine HCl (Periactin -) 4 mg PO TID [facility] Last Admin: 09/20/18 06:27 Dose: Not Given Diphenhydramine HCl (Benadryl -) 25 mg PO Q6H PRN PRN Reason: FOR ITCHING Last Admin: 09/17/18 22:11 Dose: 25 mg Docusate Sodium (Colace -) 100 mg PO Q8H PRN PRN Reason: CONSTIPATION Gabapentin (Neurontin -) 400 mg PO TID [facility] Last Admin: 09/20/18 06:27 Dose: Not Given Sodium Chloride (1/2 Normal Saline) 1,000 mls @ 75 mls/hr IV ASDIR [facility] Last Admin: 09/19/18 11:57 Dose: 75 mls/hr Nystatin (Nystatin Oral Suspension -) 500,000 units PO Q6HPO [facility] Last Admin: 09/20/18 11:35 Dose: 500,000 units Ondansetron HCl (Zofran Odt -) 4 mg SL Q8H PRN PRN Reason: NAUSEA Last Admin: 09/18/18 18:02 Dose: 4 mg Ranitidine HCl (Zantac -) 300 mg PO DAILY [facility] Last Admin: 09/20/18 11:04 Dose: 300 mg Zolpidem Tartrate (Ambien -) 5 mg PO HS PRN PRN Reason: INSOMNIA - Objective Vital Signs: Vital Signs Temperature 98.5 F 09/20/18 09:10 Pulse Rate 62 09/20/18 09:10 Respiratory Rate 20 09/20/18 09:10 Blood Pressure 134/75 09/20/18 09:10 O2 Sat by Pulse Oximetry (%) 100 09/19/18 21:00 Constitutional: Yes: Calm Eyes: Yes: Conjunctiva Clear HENT: Yes: Atraumatic Neck: Yes: Supple Cardiovascular: Yes: S1, S2 Respiratory: Yes: CTA Bilaterally Gastrointestinal: Yes: Soft Genitourinary: Yes: WNL Musculoskeletal: Yes: WNL Edema: No Neurological: Yes: Oriented Psychiatric: Yes: Oriented Labs: CBC, BMP 09/20/18 07:15 09/20/18 07:15 INR, PTT INR 0.92 (0.83-1.09) 09/20/18 07:15 Problem List - Problems (1) CKD (chronic kidney disease) Code(s): N18.9 - CHRONIC KIDNEY DISEASE, UNSPECIFIED (2) HTN (hypertension) Code(s): I10 - ESSENTIAL (PRIMARY) HYPERTENSION Qualifiers: Hypertension type: essential hypertension Qualified Code(s): I10 - Essential (primary) hypertension (3) COPD (chronic obstructive pulmonary disease) Code(s): J44.9 - CHRONIC OBSTRUCTIVE PULMONARY DISEASE, UNSPECIFIED (4) AIDS Code(s): B20 - HUMAN IMMUNODEFICIENCY VIRUS [HIV] DISEASE (5) Breast mass Code(s): N63.0 - UNSPECIFIED LUMP IN UNSPECIFIED BREAST (6) HIV (human immunodeficiency virus infection) Code(s): B20 - HUMAN IMMUNODEFICIENCY VIRUS [HIV] DISEASE Assessment/Plan Current Medications Generic Name Dose Route Start Last Admin Trade Name Freq PRN Reason Stop Dose Admin Acetaminophen/Codeine Phosphate 1 tab 09/17/18 13:43 09/20/18 11:01 Tylenol # 3 - PO 1 tab Q4H PRN Administration PAIN LEVEL 4 - 6 Atovaquone 1,500 mg 09/14/18 10:15 09/20/18 11:05 Mepron - PO 1,500 mg DAILY@0800 [facility] Administration Cyproheptadine HCl 4 mg 09/18/18 22:00 09/20/18 06:27 Periactin - PO Not Given TID [facility] Diphenhydramine HCl 25 mg 09/17/18 13:43 09/17/18 22:11 Benadryl - PO 25 mg Q6H PRN Administration FOR ITCHING Docusate Sodium 100 mg 09/17/18 13:43 Colace - PO Q8H PRN CONSTIPATION Gabapentin 400 mg 09/18/18 22:00 09/20/18 06:27 Neurontin - PO Not Given TID [facility] Sodium Chloride 1,000 mls @ 75 mls/hr 09/19/18 11:15 09/19/18 11:57 1/2 Normal Saline IV 75 mls/hr ASDIR [facility] Administration Nystatin 500,000 units 09/13/18 18:00 09/20/18 11:35 Nystatin Oral Suspension - PO 500,000 units Q6HPO [facility] Administration Ondansetron HCl 4 mg 09/18/18 17:07 09/18/18 18:02 Zofran Odt - SL 4 mg Q8H PRN Administration NAUSEA Ranitidine HCl 300 mg 09/18/18 17:15 09/20/18 11:04 Zantac - PO 300 mg DAILY [facility] Administration Zolpidem Tartrate 5 mg 09/18/18 22:00 Ambien - PO HS PRN INSOMNIA Impression 1. CKD with unclear baseline 2. COPD 3. HTN 4. HIV not on haart 5. breast mass 6. etoh abuse 7. crack use 8. schizzoaffective 9. gerd 10. nephrotic range proteinuria Plan - pt had breast biopsy - monitor renal function - pt with nephrotic range proteinuria - she lives in [place] and is here because she was in [facility]. She is deciding where she wants to go for her treatment - she will need follow up with a staff research associate and a kidney biopsy, this was explained to her at length - non compliance seems to be a problem as she has paper work from different hospitals but no outpt plan or follow up - will need to resume HIV treatment, pt is not compliant with med or with follow up - avoid nsaids - will follow Dr Arrington
[2018-09-20] MEDS: ONDANSETRON *ODT* 4 MG TABLET SL PRN (12:20)
--- NOTE | 2018-09-20 14:03 | PN ---
Progress Note (short form) - Note Progress Note: eating well s/p breast biopsy Vital Signs Period Temp Pulse Resp BP Sys/Lr Pulse Ox Last 24 Hr 98.1 F-99.5 F 51-64 18-20 131-153/47-77 100-100 cor-rrr lungs clear abd soft,nt ext no edema CBC, BMP 09/20/18 07:15 09/20/18 07:15 Microbiology 09/13/18 20:30 Urine - Urine Clean Catch Urine Culture - Final NO GROWTH OBTAINED ultrasound with CBD 1.4 cm cd4 71 a/p AIDS with breast mass, thrush, dilated CBD LFTs - repeat in am s/p breast biopsy needs imaging of dilated CBD thrush improved-d/c diflucan continue mepron for pcp propylaxis substance use ckd- avoid bactrim for now will need to return to her clinic in [place] on discharge Problem List - Problems (1) HIV (human immunodeficiency virus infection) Code(s): B20 - HUMAN IMMUNODEFICIENCY VIRUS [HIV] DISEASE (2) Abnormal LFTs Code(s): R94.5 - ABNORMAL RESULTS OF LIVER FUNCTION STUDIES (3) Breast mass Code(s): N63.0 - UNSPECIFIED LUMP IN UNSPECIFIED BREAST (4) Renal insufficiency Code(s): N28.9 - DISORDER OF KIDNEY AND URETER, UNSPECIFIED
[2018-09-20] MEDS ORDERED: ACETAMINOPHEN WITH CODEINE 300MG/30MG TABLET PO ONE (15:26)
[2018-09-20] MEDS: ACETAMINOPHEN WITH CODEINE 300MG/30MG TABLET PO PRN ×2 (16:47→21:11)
[2018-09-20] MEDS: SODIUM CHLORIDE 0.45% 1,000 ML IV SCH (17:07)
--- NOTE | 2018-09-20 17:24 | PN ---
Progress Note, Physician Chief Complaint: Ms Solorzano complains of pain at the site of breast mass, insomnia, and restless legs at night. Denies chest pressure, shortness of breath, n/v. - Current Medication List Current Medications: Active Medications Acetaminophen/Codeine Phosphate (Tylenol # 3 -) 1 tab PO Q4H PRN PRN Reason: PAIN LEVEL 6-10 Last Admin: 09/20/18 16:47 Dose: 1 tab Atovaquone (Mepron -) 1,500 mg PO DAILY@0800 [facility] Last Admin: 09/20/18 11:05 Dose: 1,500 mg Cyproheptadine HCl (Periactin -) 4 mg PO TID [facility] Last Admin: 09/20/18 13:54 Dose: 4 mg Diphenhydramine HCl (Benadryl -) 25 mg PO Q6H PRN PRN Reason: FOR ITCHING Last Admin: 09/17/18 22:11 Dose: 25 mg Docusate Sodium (Colace -) 100 mg PO Q8H PRN PRN Reason: CONSTIPATION Gabapentin (Neurontin -) 400 mg PO TID [facility] Last Admin: 09/20/18 13:54 Dose: 400 mg Sodium Chloride (1/2 Normal Saline) 1,000 mls @ 75 mls/hr IV ASDIR [facility] Last Admin: 09/20/18 17:07 Dose: 75 mls/hr Nystatin (Nystatin Oral Suspension -) 500,000 units PO Q6HPO [facility] Last Admin: 09/20/18 17:06 Dose: Not Given Ondansetron HCl (Zofran Odt -) 4 mg SL Q8H PRN PRN Reason: NAUSEA Last Admin: 09/20/18 12:20 Dose: 4 mg Ranitidine HCl (Zantac -) 300 mg PO DAILY [facility] Last Admin: 09/20/18 11:04 Dose: 300 mg Zolpidem Tartrate (Ambien -) 5 mg PO HS PRN PRN Reason: INSOMNIA - Objective Vital Signs: Vital Signs Temperature 36.9 C 09/20/18 09:10 Pulse Rate 62 09/20/18 09:10 Respiratory Rate 20 09/20/18 09:10 Blood Pressure 134/75 09/20/18 09:10 O2 Sat by Pulse Oximetry (%) 100 09/20/18 09:00 Constitutional: Yes: Well Nourished, No Distress, Calm Cardiovascular: Yes: Regular Rate and Rhythm. No: Gallop, Murmur, Rub Respiratory: Yes: Regular, CTA Bilaterally. No: Rales, Rhonchi, Wheezes Gastrointestinal: Yes: Normal Bowel Sounds, Soft. No: Distention, Tenderness Extremities: Yes: WNL Edema: No Labs: CBC, BMP 09/20/18 07:15 09/20/18 07:15 INR, PTT INR 0.92 (0.83-1.09) 09/20/18 07:15 Assessment/Plan (1) Polysubstance abuse Assessment/Plan -uses cocaine and alcohol -presented from [facility] -not in withdrawal Code(s): F19.10 - OTHER PSYCHOACTIVE SUBSTANCE ABUSE, UNCOMPLICATED (2) Transaminitis Assessment/Plan -will obtain MRCP w/o contrast considering dilated CBD Code(s): R74.0 - NONSPEC ELEV OF LEVELS OF TRANSAMNS & LACTIC ACID DEHYDRGNSE (3) AIDS Assessment/Plan -case d/w Dr Hoffman -restarted on home regimen Code(s): B20 - HUMAN IMMUNODEFICIENCY VIRUS [HIV] DISEASE (4) Breast mass Assessment/Plan: -s/p biopsy -will follow up results to decide plan of action -patient to decide if she wants to keep her care here vs in [place] Code(s): N63.0 - UNSPECIFIED LUMP IN UNSPECIFIED BREAST (5) LINDA (acute kidney injury) Assessment/Plan: -case d/w Dr Arrington -suspect chronic -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 Code(s): N17.9 - ACUTE KIDNEY FAILURE, UNSPECIFIED (6) CKD (chronic kidney disease) Assessment/Plan: -stage 3 -as above Code(s): N18.9 - CHRONIC KIDNEY DISEASE, UNSPECIFIED (7) COPD (chronic obstructive pulmonary disease) Assessment/Plan: -continue current management Code(s): J44.9 - CHRONIC OBSTRUCTIVE PULMONARY DISEASE, UNSPECIFIED (8) HTN (hypertension) Assessment/Plan -controlled Code(s): I10 - ESSENTIAL (PRIMARY) HYPERTENSION Qualifiers: Hypertension type: essential hypertension Qualified Code(s): I10 - Essential (primary) hypertension (9) Oral thrush -continue statin Code(s): B37.0 - CANDIDAL STOMATITIS (10) Dilated cbd, acquired -MRCP as above Code(s): K83.8 - OTHER SPECIFIED DISEASES OF BILIARY TRACT
[2018-09-20] MEDS: rOPINIRole HCL 0.25 MG TABLET PO SCH (21:11)
[2018-09-20] MEDS: diphenhydrAMINE HCL 25 MG CAPSULE (FP) PO PRN (21:16)
[2018-09-21] MEDS: NYSTATIN 500,000 UNITS/5 ML SUSPENSION PO SCH ×4 (00:44→19:05)
[2018-09-21] MEDS: GABAPENTIN 400 MG CAPSULE (FP) PO SCH ×4 (05:52→21:35)
[2018-09-21] MEDS: ACETAMINOPHEN WITH CODEINE 300MG/30MG TABLET PO PRN ×2 (05:52→21:34)
[2018-09-21] MEDS: CYPROHEPTADINE HCL 4 MG TABLET PO SCH ×3 (05:53→21:35)
[2018-09-21] MEDS: SODIUM CHLORIDE 0.45% 1,000 ML IV SCH ×2 (05:57→11:19)
[2018-09-21 07:27] LABS: BASO % 1.1 % (0-2.0); EOS % 8.2 % (0-4.5); HEMATOCRIT 42.1 % (32.4-45.2); HEMOGLOBIN 13.4 GM/dL (10.7-15.3); LYMPH % 37.2 % (8-40); MCH 30.5 pg (25.7-33.7); MCHC 31.8 g/dl (32.0-36.0); MEAN CELL VOLUME 95.9 fl (80-96); MONO % 12.4 % (3.8-10.2); NEUT % 41.1 % (42.8-82.8); PLATELET COUNT 89 K/MM3 (134-434); RBC 4.39 M/mm3 (3.60-5.2); RDW 13.5 % (11.6-15.6)
[2018-09-21 07:58] LABS: ALBUMIN 1.8 g/dl (3.4-5.0); ALK PHOS 77 U/L (45-117); ANION GAP 8 MMOL/L (8-16); BILIRUBIN,TOTAL 0.1 mg/dL (0.2-1); BLOOD UREA NITROGEN 22 mg/dL (7-18); CALCIUM 8.1 mg/dL (8.5-10.1); CHLORIDE 115 mmol/L (98-107); CO2 22 mmol/L (21-32); CREATININE 2.1 mg/dL (0.55-1.3); GLUCOSE,RANDOM 82 mg/dL (74-106); PHOSPHOROUS 3.9 mg/dL (2.5-4.9); POTASSIUM 4.4 mmol/L (3.5-5.1); SGOT/AST 104 U/L (15-37); SGPT/ALT 88 U/L (13-61); SODIUM 145 mmol/L (136-145); TOT PROT 5.9 g/dl (6.4-8.2)
[2018-09-21] MEDS ORDERED: PT OWN MED DRAWER 7, Y5N ONE ×4 (09:08→22:44)
--- NOTE | 2018-09-21 10:38 | PN ---
Progress Note, Physician Chief Complaint: Ms Solorzano complains of pain in her breast. Denies chest pressure, sob, n /v. - Current Medication List Current Medications: Active Medications Acetaminophen/Codeine Phosphate (Tylenol # 3 -) 1 tab PO Q4H PRN PRN Reason: PAIN LEVEL 6-10 Last Admin: 09/21/18 05:52 Dose: 1 tab Atovaquone (Mepron -) 1,500 mg PO DAILY@0800 [facility] Last Admin: 09/20/18 11:05 Dose: 1,500 mg Cyproheptadine HCl (Periactin -) 4 mg PO TID [facility] Last Admin: 09/21/18 05:53 Dose: 4 mg Diphenhydramine HCl (Benadryl -) 25 mg PO Q6H PRN PRN Reason: FOR ITCHING Last Admin: 09/20/18 21:16 Dose: 25 mg Docusate Sodium (Colace -) 100 mg PO Q8H PRN PRN Reason: CONSTIPATION Gabapentin (Neurontin -) 400 mg PO TID [facility] Last Admin: 09/21/18 05:52 Dose: 400 mg Sodium Chloride (1/2 Normal Saline) 1,000 mls @ 75 mls/hr IV ASDIR [facility] Last Admin: 09/21/18 05:57 Dose: 75 mls/hr Nystatin (Nystatin Oral Suspension -) 500,000 units PO Q6HPO [facility] Last Admin: 09/21/18 05:53 Dose: Not Given Ondansetron HCl (Zofran Odt -) 4 mg SL Q8H PRN PRN Reason: NAUSEA Last Admin: 09/20/18 12:20 Dose: 4 mg Ranitidine HCl (Zantac -) 300 mg PO DAILY [facility] Last Admin: 09/20/18 11:04 Dose: 300 mg Ropinirole HCl (Requip -) 0.25 mg PO HS [facility] Last Admin: 09/20/18 21:11 Dose: 0.25 mg Zolpidem Tartrate (Ambien -) 5 mg PO HS PRN PRN Reason: INSOMNIA - Objective Vital Signs: Vital Signs Temperature 36.8 C 09/21/18 06:10 Pulse Rate 68 09/21/18 06:10 Respiratory Rate 20 09/21/18 06:10 Blood Pressure 140/75 09/21/18 06:10 O2 Sat by Pulse Oximetry (%) 100 09/20/18 21:00 Constitutional: Yes: Well Nourished, No Distress, Calm Cardiovascular: Yes: Regular Rate and Rhythm. No: Gallop, Murmur, Rub Respiratory: Yes: Regular, CTA Bilaterally. No: Rales, Rhonchi, Wheezes Gastrointestinal: Yes: Normal Bowel Sounds, Soft. No: Distention, Tenderness Extremities: Yes: WNL Edema: No Labs: CBC, BMP 09/21/18 06:00 09/21/18 06:00 INR, PTT INR 0.92 (0.83-1.09) 09/20/18 07:15 Assessment/Plan (1) Polysubstance abuse Assessment/Plan -uses cocaine and alcohol -presented from [facility] -not in withdrawal -possible discharge back for rehabilitation Code(s): F19.10 - OTHER PSYCHOACTIVE SUBSTANCE ABUSE, UNCOMPLICATED (2) Transaminitis Assessment/Plan -MRCP w/o contrast ordered -awaiting results Code(s): R74.0 - NONSPEC ELEV OF LEVELS OF TRANSAMNS & LACTIC ACID DEHYDRGNSE (3) AIDS Assessment/Plan -continue home regimen Code(s): B20 - HUMAN IMMUNODEFICIENCY VIRUS [HIV] DISEASE (4) Breast mass Assessment/Plan: -s/p biopsy -will follow up results to decide plan of action -patient to decide if she wants to keep her care here vs in [place] Code(s): N63.0 - UNSPECIFIED LUMP IN UNSPECIFIED BREAST (5) LINDA (acute kidney injury) Assessment/Plan: -stable, suspect at baseline -Dr Arrington following Code(s): N17.9 - ACUTE KIDNEY FAILURE, UNSPECIFIED (6) CKD (chronic kidney disease) Assessment/Plan: -stage 3 -as above Code(s): N18.9 - CHRONIC KIDNEY DISEASE, UNSPECIFIED (7) COPD (chronic obstructive pulmonary disease) Assessment/Plan: -continue current management Code(s): J44.9 - CHRONIC OBSTRUCTIVE PULMONARY DISEASE, UNSPECIFIED (8) HTN (hypertension) Assessment/Plan -controlled Code(s): I10 - ESSENTIAL (PRIMARY) HYPERTENSION Qualifiers: Hypertension type: essential hypertension Qualified Code(s): I10 - Essential (primary) hypertension (9) Oral thrush -continue statin Code(s): B37.0 - CANDIDAL STOMATITIS (10) Dilated cbd, acquired -MRCP as above Code(s): K83.8 - OTHER SPECIFIED DISEASES OF BILIARY TRACT Dispo -plan for discharge when biopsy results -in discussion with patient about follow up
[2018-09-21] MEDS: RANITIDINE HCL 150 MG TABLET (FP) PO SCH (11:17)
[2018-09-21] MEDS: ATOVAQUONE 750 MG/5 ML (UNIT-DOSE PACKAGING) PO SCH ×2 (11:18→11:30)
[2018-09-21] MEDS: DOLUTEGRAVIR SODIUM 50 MG TABLET (NON-FORMULARY) PO SCH (11:19)
[2018-09-21] MEDS: DARUNAVIR 800 MG/COBICISTAT 150MG TABLET PO SCH (11:19)
--- NOTE | 2018-09-21 17:31 | PATH ---
Surgical Pathology Report Patient Name: HUMZA ARELLANO [facility]. Rec. #: [id number] /Age/Gender: 1960 (Age: 58) / F Account: [id number] [facility]/SURG Taken: 09/20/2018 Received: 09/20/2018 Reported: 09/21/2018 Physicians: Dilan Mccray M.D. Specimen(s) Received A: LEFT BREAST 1-2:00 B: LEFT AXILLA LYMPH NODE Clinical History Palpable mass, HIV positive patient Ultrasound findings: Highly suspicious/malignant Left breast 1-2:00, 2.5 cm Left Axilla abnormal lymph node, 2.1 cm Final Diagnosis A. BREAST, LEFT, 1-2:00, ULTRASOUND GUIDED CORE BIOPSY: INVASIVE DUCTAL CARCINOMA, MODERATELY DIFFERENTIATED, MEASURING AT LEAST 1.5 CM IN THIS MATERIAL. DUCTAL CARCINOMA IN SITU (DCIS), CRIBRIFORM TYPE, HIGH NUCLEAR GRADE WITH ASSOCIATED CENTRAL NECROSIS. B. AXILLARY LYMPH NODE, LEFT, ULTRASOUND GUIDED CORE BIOPSY: ADENOCARCINOMA, MORPHOLOGICALLY SIMILAR TO PART A. SEPARATE FRAGMENT OF LYMPHOID TISSUE. Results of Estrogen Receptor (ER) and Progesterone Receptor (MN) studies performed on block "A" at [facility] are as follows: ER (clone [id number] mouse monoclonal antibody by [employer]): ~90% nuclear staining with strong intensity (Positive). MN (clone16 mouse monoclonal antibody by [employer]): ~60% nuclear staining with strong intensity (Positive). Positive and negative controls (internal if applicable) show appropriate results. Formalin fixation and cold ischemic times are within current ASCO/CAP recommendations for ER, MN and Her2 testing. Results of Her2 (IHC) & Ki-67 studies are pending and will be reported separately. Electronically Signed Caprice Pillai M.D. Addendum Reported: 09/22/2018 Addendum Diagnosis Results of Her2 (IHC) & Ki-67 studies performed on block "A" at [place], [place] ([id number]) are as follows: Her2 IHC (EP3 from [employer], formerly known as [id number], using [employer] Polymer Refine detection kit): 2+ (Equivocal). Ki-67:~20% (Intermediate proliferative index). Positive and negative controls (internal if applicable) show appropriate results. Caprice Pillai M.D. Addendum Reported: 09/27/2018 Addendum Diagnosis HER2 ANALYSIS by FISH performed and interpreted at [facility] ([id number]) shows the following: INTERPRETATION: Positive Probe: Her2 6.0 Probe: CEP17 2.9 Ratio: 2.1 Approved scoring guideline >= 2.0 = Amplified <= 2.0 = Not amplified See Emerge report for additional details ([id number]) Caprice Pillai M.D. Gross Description A. Received in formalin labeled "left breast 1-2:00," are 3 mantilla-yellow, cylindrical portions of fibroadipose tissue averaging 1.6 cm in length and 0.1 cm in diameter. The specimens are submitted in toto in one cassette. B. Received in formalin labeled "left axilla," are 2 mantilla-yellow, cylindrical portions of fibroadipose tissue measuring 1.0 and 1.5 cm in length and averaging 0.1 cm in diameter. The specimens are submitted in toto in one cassette. Time to formalin fixation: Less than one minute Total formalin fixation time: Approximately 8 hours. 09/20/2018 saudi09/20/2018
--- NOTE | 2018-09-21 17:44 | PN ---
Progress Note, Physician History of Present Illness: Pt seen and examined at bedside. She is awake and alert. She denies shortness of breath. She denies dysuria. - Current Medication List Current Medications: Active Medications Acetaminophen/Codeine Phosphate (Tylenol # 3 -) 1 tab PO Q4H PRN PRN Reason: PAIN LEVEL 6-10 Last Admin: 09/21/18 05:52 Dose: 1 tab Atovaquone (Mepron -) 1,500 mg PO DAILY@0800 [facility] Last Admin: 09/21/18 11:30 Dose: Not Given Cyproheptadine HCl (Periactin -) 4 mg PO TID [facility] Last Admin: 09/21/18 15:05 Dose: 4 mg Diphenhydramine HCl (Benadryl -) 25 mg PO Q6H PRN PRN Reason: FOR ITCHING Last Admin: 09/20/18 21:16 Dose: 25 mg Docusate Sodium (Colace -) 100 mg PO Q8H PRN PRN Reason: CONSTIPATION Gabapentin (Neurontin -) 400 mg PO TID [facility] Last Admin: 09/21/18 15:34 Dose: Not Given Sodium Chloride (1/2 Normal Saline) 1,000 mls @ 75 mls/hr IV ASDIR [facility] Last Admin: 09/21/18 11:19 Dose: Not Given Nystatin (Nystatin Oral Suspension -) 500,000 units PO Q6HPO [facility] Last Admin: 09/21/18 11:17 Dose: 500,000 units Ondansetron HCl (Zofran Odt -) 4 mg SL Q8H PRN PRN Reason: NAUSEA Last Admin: 09/20/18 12:20 Dose: 4 mg Ranitidine HCl (Zantac -) 300 mg PO DAILY [facility] Last Admin: 09/21/18 11:17 Dose: 300 mg Ropinirole HCl (Requip -) 0.25 mg PO HS [facility] Last Admin: 09/20/18 21:11 Dose: 0.25 mg Zolpidem Tartrate (Ambien -) 5 mg PO HS PRN PRN Reason: INSOMNIA - Objective Vital Signs: Vital Signs Temperature 97.9 F 09/21/18 17:06 Pulse Rate 76 09/21/18 17:06 Respiratory Rate 20 09/21/18 17:06 Blood Pressure 126/75 09/21/18 17:06 O2 Sat by Pulse Oximetry (%) 100 09/20/18 21:00 Constitutional: Yes: Calm Eyes: Yes: Conjunctiva Clear HENT: Yes: Atraumatic Neck: Yes: Supple Cardiovascular: Yes: S1, S2 Respiratory: Yes: CTA Bilaterally Gastrointestinal: Yes: Soft Genitourinary: Yes: WNL Musculoskeletal: Yes: WNL Edema: No Neurological: Yes: Oriented Psychiatric: Yes: Oriented Labs: CBC, BMP 09/21/18 06:00 09/21/18 06:00 INR, PTT INR 0.92 (0.83-1.09) 09/20/18 07:15 Problem List - Problems (1) CKD (chronic kidney disease) Code(s): N18.9 - CHRONIC KIDNEY DISEASE, UNSPECIFIED (2) HTN (hypertension) Code(s): I10 - ESSENTIAL (PRIMARY) HYPERTENSION Qualifiers: Hypertension type: essential hypertension Qualified Code(s): I10 - Essential (primary) hypertension (3) COPD (chronic obstructive pulmonary disease) Code(s): J44.9 - CHRONIC OBSTRUCTIVE PULMONARY DISEASE, UNSPECIFIED (4) AIDS Code(s): B20 - HUMAN IMMUNODEFICIENCY VIRUS [HIV] DISEASE (5) Breast mass Code(s): N63.0 - UNSPECIFIED LUMP IN UNSPECIFIED BREAST (6) HIV (human immunodeficiency virus infection) Code(s): B20 - HUMAN IMMUNODEFICIENCY VIRUS [HIV] DISEASE Assessment/Plan Current Medications Generic Name Dose Route Start Last Admin Trade Name Freq PRN Reason Stop Dose Admin Acetaminophen/Codeine Phosphate 1 tab 09/20/18 16:35 09/21/18 05:52 Tylenol # 3 - PO 1 tab Q4H PRN Administration PAIN LEVEL 6-10 Atovaquone 1,500 mg 09/14/18 10:15 09/21/18 11:30 Mepron - PO Not Given DAILY@0800 [facility] Cyproheptadine HCl 4 mg 09/18/18 22:00 09/21/18 15:05 Periactin - PO 4 mg TID TIMMY Administration Diphenhydramine HCl 25 mg 09/17/18 13:43 09/20/18 21:16 Benadryl - PO 25 mg Q6H PRN Administration FOR ITCHING Docusate Sodium 100 mg 09/17/18 13:43 Colace - PO Q8H PRN CONSTIPATION Gabapentin 400 mg 09/18/18 22:00 09/21/18 15:34 Neurontin - PO Not Given TID TIMMY Sodium Chloride 1,000 mls @ 75 mls/hr 09/19/18 11:15 09/21/18 11:19 1/2 Normal Saline IV Not Given ASDIR TIMMY Nystatin 500,000 units 09/13/18 18:00 09/21/18 11:17 Nystatin Oral Suspension - PO 500,000 units Q6HPO TIMMY Administration Ondansetron HCl 4 mg 09/18/18 17:07 09/20/18 12:20 Zofran Odt - SL 4 mg Q8H PRN Administration NAUSEA Ranitidine HCl 300 mg 09/18/18 17:15 09/21/18 11:17 Zantac - PO 300 mg DAILY TIMMY Administration Ropinirole HCl 0.25 mg 09/20/18 22:00 09/20/18 21:11 Requip - PO 0.25 mg HS TIMMY Administration Zolpidem Tartrate 5 mg 09/18/18 22:00 Ambien - PO HS PRN INSOMNIA Impression 1. CKD with unclear baseline 2. COPD 3. HTN 4. HIV not on haart 5. breast mass 6. etoh abuse 7. crack use 8. schizzoaffective 9. gerd 10. nephrotic range proteinuria Plan - renal function is stabilizing - follow breast biopsy - will need outpt follow after discharge - discussed plan with pt - discussed with medical team - avoid nsaids - will follow Dr Arrington
--- NOTE | 2018-09-21 21:32 | CON.GI ---
Consult Consult Specialty:: Gastroenterology ( [facility] Dr Tellez) Referred by:: Dr. Womack Reason for Consultation:: Dilated CBD - History of Present Illness Chief Complaint: left breast mass History of Present Illness: 58F was transferred from [facility] where she was rehabbing from crack abuse for a left breast mass. Biopsies have found adenocarcinoma which is also involving left axillary nodes. MRI revealed a dilated CBD to 1.6cm with distal tapering and a tiny nonobstructing gallbaldder polyp. her papers from [facility] in [place] allude to a dilated CBD and left breast mass. She denies any h/o liver or pancreatic disease. No biliary colic. She does have constipation and suprapubic discomfort. She denies ever having had an EGD or colonoscopy although her [facility] papers allude to esophageal candidiasis. She admits to heavy alcohol abuse in the past. She has been smoking crack until recently. She denies IVDA. She denies a FH of colon cancer She is followed at an HIV treatment center in [place] and tells me that she is compliant with her medications. She tells me that she weigher 210 lbs about a year ago. She admits to a waning appetite. She denies dysphagia - History Source History Provided By: Patient, Medical Record Limitations to Obtaining History: No Limitations - Past Medical History Cardio/Vascular: Yes: HTN Pulmonary: Yes: COPD Gastrointestinal: Yes: GERD Hepatobiliary: Yes: Cholelithiasis, Other (fatty liver, dilated CBD) Renal/: Yes: Renal Inusuff Reproductive: Yes: Fibroids (s/p laparoscopic excision of 3 ) ...LMP Comment: post menopause ...: No Infectious Disease: Yes: HIV (since 2004 ) Psych: Yes: Other (Schzoaffective disorder) Rheumatology: Yes: Gout - Past Surgical History Additional Surgical History: Laparoscopic partial myomectomies - Alcohol/Substance Use Hx Alcohol Use: Yes History of Substance Use: reports: Cocaine, Marijuana - Smoking History Smoking history: Current every day smoker Have you smoked in the past 12 months: Yes Aproximately how many cigarettes per day: 5 - Social History Usual Living Arrangement: Alone ADL: Independent Occupation: unemployed Place of : [place] History of Recent Travel: No Home Medications - Allergies Allergies/Adverse Reactions: Allergies Allergy/AdvReac Type Severity Reaction Status Date / Time Beta-Adrenergic Agents Allergy Verified 09/12/18 17:00 - Home Medications Home Medications: Ambulatory Orders Darunavir/Cobicistat [Prezcobix 800 mg-150 mg Tablet] 1 each PO DAILY 09/13/18 Cyproheptadine [Periactin -] 4 mg PO Q8H 09/14/18 Dolutegravir Sodium [Tivicay] 50 mg PO DAILY 09/14/18 Famotidine [Pepcid] 40 mg PO DAILY 09/14/18 Gabapentin 400 mg PO TID 09/14/18 Oxycodone HCl/Acetaminophen [Oxycodone-Acetaminophen 10-325] 10 mg PO QID Zolpidem Tartrate [Ambien] 5 mg PO HS 09/14/18 Family Disease History - Family Disease History Family Disease History: CA: Mother ( 66 bladder cancer), Sister (uterine cancer), Other: Father ( age 88) Review of Systems - Review of Systems Constitutional: reports: Loss of Appetite, Unintentional Wgt. Loss Eyes: reports: No Symptoms HENT: reports: No Symptoms Respiratory: reports: Cough, Exercise Intolerance Gastrointestinal: reports: Abdominal Pain, Constipation Psychiatric: reports: Anxiety, Panic Physical Exam-GI Vital Signs: Vital Signs Temperature 97.9 F 09/21/18 17:06 Pulse Rate 76 09/21/18 17:06 Respiratory Rate 20 09/21/18 17:06 Blood Pressure 126/75 09/21/18 17:06 O2 Sat by Pulse Oximetry (%) 100 09/20/18 21:00 CBC,CMP WBC 3.0 K/mm3 (4.0-10.0) L 09/21/18 06:00 RBC 4.39 M/mm3 (3.60-5.2) 09/21/18 06:00 Hgb 13.4 GM/dL (10.7-15.3) 09/21/18 06:00 Hct 42.1 % (32.4-45.2) 09/21/18 06:00 MCV 95.9 fl (80-96) 09/21/18 06:00 MCH 30.5 pg (25.7-33.7) 09/21/18 06:00 MCHC 31.8 g/dl (32.0-36.0) L 09/21/18 06:00 RDW 13.5 % (11.6-15.6) 09/21/18 06:00 Plt Count 89 K/MM3 (134-434) L 09/21/18 06:00 MPV 13.0 fl (7.5-11.1) H 09/21/18 06:00 Absolute Neuts (auto) 1.2 K/mm3 (1.5-8.0) L 09/21/18 06:00 Absolute Lymphs (auto) 1.0 x10E3/uL (0.7-3.1) 09/13/18 05:20 Neutrophils % 41.1 % (42.8-82.8) L 09/21/18 06:00 Lymphocytes % 37.2 % (8-40) 09/21/18 06:00 Monocytes % 12.4 % (3.8-10.2) H 09/21/18 06:00 Eosinophils % 8.2 % (0-4.5) H 09/21/18 06:00 Basophils % 1.1 % (0-2.0) 09/21/18 06:00 Nucleated RBC % 0 % (0-0) 09/21/18 06:00 Lymphocytes 35 % (Not Estab.) 09/13/18 05:20 Nucleated RBCs TNP 09/13/18 05:20 Platelet Estimate Slt decrease 09/12/18 21:47 Platelet Comment 09/12/18 21:47 Sodium 145 mmol/L (136-145) 09/21/18 06:00 Potassium 4.4 mmol/L (3.5-5.1) 09/21/18 06:00 Chloride 115 mmol/L (98-107) H 09/21/18 06:00 Carbon Dioxide 22 mmol/L (21-32) 09/21/18 06:00 Anion Gap 8 MMOL/L (8-16) 09/21/18 06:00 BUN 22 mg/dL (7-18) H 09/21/18 06:00 Creatinine 2.1 mg/dL (0.55-1.3) H 09/21/18 06:00 Creat Clearance w eGFR 24.27 (>60) 09/21/18 06:00 Random Glucose 82 mg/dL (74-106) 09/21/18 06:00 Calcium 8.1 mg/dL (8.5-10.1) L 09/21/18 06:00 Phosphorus 3.9 mg/dL (2.5-4.9) 09/21/18 06:00 Magnesium 2.0 mg/dL (1.8-2.4) 09/21/18 06:00 Total Bilirubin 0.1 mg/dL (0.2-1) L 09/21/18 06:00 AST 104 U/L (15-37) H 09/21/18 06:00 ALT 88 U/L (13-61) H 09/21/18 06:00 Alkaline Phosphatase 77 U/L (45-117) 09/21/18 06:00 Creatine Kinase 116 IU/L (26-192) 09/12/18 21:47 Troponin I < 0.02 ng/ml (0.00-0.05) 09/12/18 21:47 Total Protein 5.9 g/dl (6.4-8.2) L 09/21/18 06:00 Total Protein (PEP) 5.8 g/dL (6.0-8.5) L 09/14/18 06:30 Albumin 1.8 g/dl (3.4-5.0) L 09/21/18 06:00 Albumin (PEP) 2.2 gm/dl (2.9-4.4) L 09/14/18 06:30 Globulin 3.6 g/dL (2.2-3.9) 09/14/18 06:30 Albumin/Globulin Ratio 0.6 (0.7-1.7) L 09/14/18 06:30 Beta Globulins 0.7 gm/dL (0.7-1.3) 09/14/18 06:30 PTH Intact 195 pg/mL (15-65) H 09/13/18 05:20 Current Medications Generic Name Dose Route Start Last Admin Trade Name Freq PRN Reason Stop Dose Admin Acetaminophen/Codeine Phosphate 1 tab 09/20/18 16:35 09/21/18 21:34 Tylenol # 3 - PO 1 tab Q4H PRN Administration PAIN LEVEL 6-10 Atovaquone 1,500 mg 09/14/18 10:15 09/21/18 11:30 Mepron - PO Not Given DAILY@0800 [facility] Cyproheptadine HCl 4 mg 09/18/18 22:00 09/21/18 21:35 Periactin - PO 4 mg TID TIMMY Administration Diphenhydramine HCl 25 mg 09/17/18 13:43 09/20/18 21:16 Benadryl - PO 25 mg Q6H PRN Administration FOR ITCHING Docusate Sodium 100 mg 09/17/18 13:43 Colace - PO Q8H PRN CONSTIPATION Gabapentin 400 mg 09/18/18 22:00 09/21/18 21:35 Neurontin - PO 400 mg TID TIMMY Administration Sodium Chloride 1,000 mls @ 75 mls/hr 09/19/18 11:15 09/21/18 11:19 1/2 Normal Saline IV Not Given ASDIR TIMMY Nystatin 500,000 units 09/13/18 18:00 09/21/18 19:05 Nystatin Oral Suspension - PO 500,000 units Q6HPO TIMMY Administration Ondansetron HCl 4 mg 09/18/18 17:07 09/20/18 12:20 Zofran Odt - SL 4 mg Q8H PRN Administration NAUSEA Ranitidine HCl 300 mg 09/18/18 17:15 09/21/18 11:17 Zantac - PO 300 mg DAILY TIMMY Administration Ropinirole HCl 0.25 mg 09/20/18 22:00 09/21/18 21:36 Requip - PO 0.25 mg HS TIMMY Administration Zolpidem Tartrate 5 mg 09/18/18 22:00 Ambien - PO HS PRN INSOMNIA Constitutional: Yes: No Distress Eyes: Yes: Conjunctiva Clear HENT: Yes: Atraumatic Neck: Yes: Supple Cardiovascular: Yes: Regular Rate and Rhythm Respiratory: Yes: CTA Bilaterally Gastrointestinal Inspection: Yes: Scars (healed suprapubic laparoscopic incisions) ...Auscultate: Yes: Normoactive Bowel Sounds ...Palpate: Yes: Soft, Other (nontender) ...Rectal Exam: Yes: Guaiac Negative (no rectal masses, brown guaiac negative stool), Hemorrhoids/External Neurological: Yes: Alert, Oriented Labs: CBC, BMP 09/21/18 06:00 09/21/18 06:00 INR, PTT INR 0.92 (0.83-1.09) 09/20/18 07:15 Laboratory Tests 09/15/18 09/19/18 09/21/18 06:40 06:15 06:00 WBC Plt Count Total Bilirubin 0.1 L 0.1 L 0.1 L AST 75 H 173 H 104 H ALT 57 116 H 88 H Alkaline Phosphatase 59 79 77 Albumin 1.8 L 09/21/18 06:00 WBC 3.0 L Plt Count 89 L Total Bilirubin AST ALT Alkaline Phosphatase Albumin Laboratory Tests 09/13/18 09/13/18 09/13/18 05:20 05:20 05:20 DELPHINE Screen c-ANCA Hep A IgM Ab Confirm Negative Hepatitis A Ab Total Positive H Hep Bs Antigen Negative Hep Bs Antibody Non reactive HCV Quantitation Hcv not detected HIV-1 RNA Quant [id number] HIV-1 RNA (PCR) log10 4.882 09/14/18 06:30 DELPHINE Screen Negative c-ANCA <1:20 Hep A IgM Ab Confirm Hepatitis A Ab Total Hep Bs Antigen Hep Bs Antibody HCV Quantitation HIV-1 RNA Quant HIV-1 RNA (PCR) log10 Imaging - Results MRI: Report Reviewed (Farhana Ceballos Name: [facility] DEPARTMENT OF RADIOLOGY Phys: Dev Womack MD : 1960 Age: 58 Sex: F [facility] Acct: [id number] Loc: [address] Exam Date: 09/21/18 Status: [place] [address] Unit Number: [id number] EXAM#: TYPE/EXAM: RESULT: [id number] MRI/ABDOMEN MRI W/O CONTRAST /MRCP MRI OF THE ABDOMEN WITHOUT IV GADOLINIUM WITH MRCP HISTORY: 58-year-old female with dilated CBD on ultrasound presenting for further evaluation and characterization TECHNIQUE : Multiplanar multisequential MRI of the abdomen without the intravenous administration of contrast were performed on a high field 1.5 Vida GE magnet. Axial and coronal T2 fat-sat, axial T1 (in and out of phase), axial T2 FIESTA, axial T1 fat sat - LAVA without contrast in addition to coronal LAVA and axial diffusion weighted images were performed. Axial and coronal thin and thick slab 3 D MRCP was performed. No comparison MRI is available. Correlation is made with CT of the abdomen and pelvis dated September 15, 2018. FINDINGS: There is mild bilateral posterior dependent lung atelectasis. The visualized inferior mediastinum is grossly unremarkable. The liver is normal in size with no evidence of abnormal loss of signal on out of phase imaging to suggest fatty infiltration. There is no focal hepatic signal abnormality. The spleen is normal in size with no evidence of focal abnormal signal. The pancreas is homogeneous in signal with no focal signal abnormality. There is mild diffuse pancreatic ductal dilatation. There is a 9 mm cyst in the pancreatic head contiguous with the pancreatic duct versus focal dilatation of the pancreatic duct. The gallbladder is none distended with no evidence of sludge. There is a tiny stone measuring 2 to 3 mm in the gallbladder neck or cystic duct however nonobstructing. There is no abnormal gallbladder wall thickening or surrounding edema. The CBD is markedly dilated measuring up to 1.6 cm with distal tapering. There is mild intrahepatic biliary ductal dilatation. The cystic duct is dilated. The adrenal glands are unremarkable. There is 7 mm right upper renal pole cyst. There is no hydronephrosis. There is no abnormal dilated bowel loops. There is no evidence of abdominal lymphadenopathy or abdominal ascites. The visualized osseous structures are grossly unremarkable. IMPRESSION: 2- 3 mm nonobstructing stone in the gallbladder neck or cystic duct however with no MRI evidence of cholecystitis. Diffusely dilated CBD up to 1.6 cm with distal tapering coupled with cystic duct dilatation, mild diffuse pancreatic ductal dilatation and mild intrahepatic biliary duct dilatation. No choledocholithiasis seen. No obvious obstructing mass is seen. Correlate with LFTs and bilirubin level. Underlying distal ampullary stricture or ampullary obstructing osseous cannot be excluded. If clinically indicated ERCP may be obtained for further evaluation. Reported By: Robles Vanessa MD 09/21 1534 Technologist: Virgilio Sommers Transcribed Date/Time: 09/21/18 1534 Airline Ticket Agent: Robles Vanessa Printed Date/Time: By: Signed by : Robles Vanessa Signed on: 21-Sep-2018 15:35) Problem List - Problems (1) Dilated cbd, acquired Assessment/Plan: The CBD dilation appears to be chronic as it was noted in a previous hospital record. Given the small gallstone she may have a distal CBD stricture due to repeated gallstone passages. Her fluctuating LFTs may reflect this. This could reflect HIV cholangiopathy. I explained that an underlying cholangiocarcinoma or ampullary neoplasm cannot be excluded and that at some point she may need an ERCP. I discussed ERCP and it's potential serious adverse complications in the context of her adenocarcinoma. Her LFTs does not support a significant bile duct obstruction at this point and we mutually agreed that further workup could be deferred until she recovers from treatment for her breast cancer and the opportunity to return home to [place]. Should she develop cholangitis or obstructive jaundice ERCP shakila be reconsidered. Code(s): K83.8 - OTHER SPECIFIED DISEASES OF BILIARY TRACT (2) Cholelithiasis Code(s): K80.20 - CALCULUS OF GALLBLADDER W/O CHOLECYSTITIS W/O OBSTRUCTION (3) Adenocarcinoma of left breast Code(s): C50.912 - MALIGNANT NEOPLASM OF UNSPECIFIED SITE OF LEFT FEMALE BREAST (4) Schizoaffective disorder, bipolar type Code(s): F25.0 - SCHIZOAFFECTIVE DISORDER, BIPOLAR TYPE (5) Constipation Code(s): K59.00 - CONSTIPATION, UNSPECIFIED (6) HIV (human immunodeficiency virus infection) Code(s): B20 - HUMAN IMMUNODEFICIENCY VIRUS [HIV] DISEASE (7) Polysubstance abuse Code(s): F19.10 - OTHER PSYCHOACTIVE SUBSTANCE ABUSE, UNCOMPLICATED (8) Transaminitis Code(s): R74.0 - NONSPEC ELEV OF LEVELS OF TRANSAMNS & LACTIC ACID DEHYDRGNSE Assessment/Plan Chronically dilated CBD without evidence of cholangitis or obstructive jaundice Can defer further workup until her breast cancer is attended to
[2018-09-21] MEDS: rOPINIRole HCL 0.25 MG TABLET PO SCH (21:36)
[2018-09-22] MEDS: NYSTATIN 500,000 UNITS/5 ML SUSPENSION PO SCH ×3 (00:35→13:12)
[2018-09-22] MEDS ORDERED: PT OWN MED DRAWER 7, Y5N ONE ×5 (01:12→09:54)
[2018-09-22] MEDS: SODIUM CHLORIDE 0.45% 1,000 ML IV SCH ×2 (02:40→11:42)
[2018-09-22] MEDS: GABAPENTIN 400 MG CAPSULE (FP) PO SCH (06:00)
[2018-09-22] MEDS: CYPROHEPTADINE HCL 4 MG TABLET PO SCH (06:00)
[2018-09-22 08:23] LABS: BASO % 1.4 % (0-2.0); EOS % 7.4 % (0-4.5); HEMATOCRIT 39.4 % (32.4-45.2); HEMOGLOBIN 12.4 GM/dL (10.7-15.3); LYMPH % 34.5 % (8-40); MCH 29.8 pg (25.7-33.7); MCHC 31.4 g/dl (32.0-36.0); MEAN CELL VOLUME 95.1 fl (80-96); MEAN PLT VOLUME 11.3 fl (7.5-11.1); MONO % 14.9 % (3.8-10.2); NEUT % 41.8 % (42.8-82.8); PLATELET COUNT 81 K/MM3 (134-434); RBC 4.14 M/mm3 (3.60-5.2); RDW 13.2 % (11.6-15.6); WHITE BLOOD COUNT 3.8 K/mm3 (4.0-10.0)
[2018-09-22 08:56] LABS: ALBUMIN 1.5 g/dl (3.4-5.0); ALK PHOS 70 U/L (45-117); ANION GAP 6 MMOL/L (8-16); BILIRUBIN,DIRECT 0.1 mg/dL (0.0-0.2); BILIRUBIN,TOTAL 0.1 mg/dL (0.2-1); BLOOD UREA NITROGEN 17 mg/dL (7-18); CHLORIDE 117 mmol/L (98-107); CO2 23 mmol/L (21-32); GLUCOSE,RANDOM 87 mg/dL (74-106); MAGNESIUM 1.8 mg/dL (1.8-2.4); PHOSPHOROUS 4.1 mg/dL (2.5-4.9); SGOT/AST 85 U/L (15-37); SGPT/ALT 75 U/L (13-61); SODIUM 145 mmol/L (136-145); TOT PROT 5.3 g/dl (6.4-8.2)
[2018-09-22] MEDS: RANITIDINE HCL 150 MG TABLET (FP) PO SCH (10:23)
[2018-09-22] MEDS: ACETAMINOPHEN WITH CODEINE 300MG/30MG TABLET PO PRN (10:24)
[2018-09-22] MEDS: DOLUTEGRAVIR SODIUM 50 MG TABLET (NON-FORMULARY) PO SCH (10:26)
[2018-09-22] MEDS: ATOVAQUONE 750 MG/5 ML (UNIT-DOSE PACKAGING) PO SCH (10:26)
[2018-09-22] MEDS: DARUNAVIR 800 MG/COBICISTAT 150MG TABLET PO SCH (10:26)
--- NOTE | 2018-09-22 10:26 | DS ---
Physical Examination Vital Signs: Vital Signs Temperature 36.6 C 09/22/18 06:59 Pulse Rate 63 09/22/18 06:59 Respiratory Rate 20 09/22/18 06:59 Blood Pressure 138/70 09/22/18 06:59 O2 Sat by Pulse Oximetry (%) 100 09/20/18 21:00 Constitutional: Yes: Well Nourished, No Distress, Calm Cardiovascular: Yes: Regular Rate and Rhythm. No: Gallop, Murmur, Rub Respiratory: Yes: Regular, CTA Bilaterally. No: Rales, Rhonchi, Wheezes Gastrointestinal: Yes: Normal Bowel Sounds, Soft. No: Distention, Tenderness Extremities: Yes: WNL Edema: No Labs: CBC, BMP 09/22/18 07:10 09/22/18 07:10 Discharge Summary Reason For Visit: ACQUIRED IMMUNODEFICIENCY/ALCOHOL WITHDRAWAL Current Active Problems AIDS (Acute) LINDA (acute kidney injury) (Acute) Abnormal LFTs (Acute) Acute on chronic kidney failure (Acute) Adenocarcinoma of left breast (Acute) Alcohol withdrawal (Acute) Breast mass (Acute) CKD (chronic kidney disease) (Acute) COPD (chronic obstructive pulmonary disease) (Acute) Cholelithiasis (Acute) Constipation (Acute) Dilated cbd, acquired (Acute) HIV (human immunodeficiency virus infection) (Acute) HTN (hypertension) (Acute) Oral thrush (Acute) Polysubstance abuse (Acute) Renal insufficiency (Acute) Schizoaffective disorder, bipolar type (Acute) Transaminitis (Acute) Hospital Course: Studies: EXAM#: TYPE/EXAM: RESULT: [id number] MRI/ABDOMEN MRI W/O CONTRAST /MRCP MRI OF THE ABDOMEN WITHOUT IV GADOLINIUM WITH MRCP HISTORY: 58-year-old female with dilated CBD on ultrasound presenting for further evaluation and characterization TECHNIQUE: Multiplanar multisequential MRI of the abdomen without the intravenous administration of contrast were performed on a high field 1.5 Vida GE magnet. Axial and coronal T2 fat-sat, axial T1 (in and out of phase), axial T2 FIESTA, axial T1 fat sat - LAVA without contrast in addition to coronal LAVA and axial diffusion weighted images were performed. Axial and coronal thin and thick slab 3 D MRCP was performed. No comparison MRI is available. Correlation is made with CT of the abdomen and pelvis dated September 15, 2018. FINDINGS: There is mild bilateral posterior dependent lung atelectasis. The visualized inferior mediastinum is grossly unremarkable. The liver is normal in size with no evidence of abnormal loss of signal on out of phase imaging to suggest fatty infiltration. There is no focal hepatic signal abnormality. The spleen is normal in size with no evidence of focal abnormal signal. The pancreas is homogeneous in signal with no focal signal abnormality. There is mild diffuse pancreatic ductal dilatation. There is a 9 mm cyst in the pancreatic head contiguous with the pancreatic duct versus focal dilatation of the pancreatic duct. The gallbladder is none distended with no evidence of sludge. There is a tiny stone measuring 2 to 3 mm in the gallbladder neck or cystic duct however nonobstructing. There is no abnormal gallbladder wall thickening or surrounding edema. The CBD is markedly dilated measuring up to 1.6 cm with distal tapering. There is mild intrahepatic biliary ductal dilatation. The cystic duct is dilated. The adrenal glands are unremarkable. There is 7 mm right upper renal pole cyst. There is no hydronephrosis. There is no abnormal dilated bowel loops. There is no evidence of abdominal lymphadenopathy or abdominal ascites. The visualized osseous structures are grossly unremarkable. IMPRESSION: 2-3 mm nonobstructing stone in the gallbladder neck or cystic duct however with no MRI evidence of cholecystitis. Diffusely dilated CBD up to 1.6 cm with distal tapering coupled with cystic duct dilatation, mild diffuse pancreatic ductal dilatation and mild intrahepatic biliary duct dilatation. No choledocholithiasis seen. No obvious obstructing mass is seen. Correlate with LFTs and bilirubin level. Underlying distal ampullary stricture or ampullary obstructing osseous cannot be excluded. If clinically indicated ERCP may be obtained for further evaluation. Reported By: Robles Vanessa MD 09/21/18 1534 Renal ultrasound Examination is slightly limited. Patient could not tolerate the exam. The right kidney measures 10.6 cm in sagittal length and it is slightly echogenic relative to the adjacent liver parenchyma. Left kidney measures 10.2 cm in sagittal length with increased echotexture No gross renal stones, hydronephrosis, cystic or solid mass lesion are identified, bilaterally. Normal color Doppler flow in the renal hilum, bilaterally. Visualized portion of the liver and spleen appear unremarkable. IMPRESSION: Both kidneys are echogenic suggestive of chronic medical renal disease. No gross hydronephrosis or renal stones are identified, bilaterally. Correlate clinically to determine further evaluation and follow-up. Reported By: Hardeep Martinez MD 09/13/18 1232 Hospital Course (1) Polysubstance abuse Code(s): F19.10 - OTHER PSYCHOACTIVE SUBSTANCE ABUSE, UNCOMPLICATED (2) Transaminitis Code(s): R74.0 - NONSPEC ELEV OF LEVELS OF TRANSAMNS & LACTIC ACID DEHYDRGNSE (3) AIDS Code(s): B20 - HUMAN IMMUNODEFICIENCY VIRUS [HIV] DISEASE (4) Breast mass Code(s): N63.0 - UNSPECIFIED LUMP IN UNSPECIFIED BREAST (5) LINDA (acute kidney injury) Code(s): N17.9 - ACUTE KIDNEY FAILURE, UNSPECIFIED (6) CKD (chronic kidney disease) Code(s): N18.9 - CHRONIC KIDNEY DISEASE, UNSPECIFIED (7) COPD (chronic obstructive pulmonary disease) Code(s): J44.9 - CHRONIC OBSTRUCTIVE PULMONARY DISEASE, UNSPECIFIED (8) HTN (hypertension) Code(s): I10 - ESSENTIAL (PRIMARY) HYPERTENSION Qualifiers: Hypertension type: essential hypertension Qualified Code(s): I10 - Essential (primary) hypertension (9) Oral thrush Code(s): B37.0 - CANDIDAL STOMATITIS (10) Dilated cbd, acquired Code(s): K83.8 - OTHER SPECIFIED DISEASES OF BILIARY TRACT Ms Solorzano is a 58 year old female who presented from [facility] with breast pain secondary to breast mass that has been present for at least 5 months. Patient has been seen in [place] and has a breast cancer specialist out there but has been non-compliant with her follow up. She was at [facility] for rehabilitation where she complained of breast pain that was not new. She was admitted and also found to have LINDA vs CKD. She is HIV positive as well. She was seen by ID and restarted on her home regimen. She was seen by nephrology and her renal function was monitored, it was stable here. 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 She underwent breast biopsy and was found to have breast cancer. Patient was made aware of this diagnosis and told she should follow up with her breast cancer physician in [place] for further evaluation and care. Currently she is stable for discharge back to [facility] to continue rehabilitation. MRCP noted above, seen by GI and recommends outpatient follow up. 45 minutes spent in preparation of this discharge Condition: Stable - Instructions Diet, Activity, Other Instructions: renal diet. resume previous diet. Further care per rehab. Referrals: Ester Cerda [Other] Aniyah Verma MD [Staff Physician] - Disposition: ASSISTED FACILITY - Home Medications Comprehensive Discharge Medication List: Ambulatory Orders Darunavir/Cobicistat [Prezcobix 800 mg-150 mg Tablet] 1 each PO DAILY 09/13/18 Cyproheptadine [Periactin -] 4 mg PO Q8H 09/14/18 Dolutegravir Sodium [Tivicay] 50 mg PO DAILY 09/14/18 Famotidine [Pepcid] 40 mg PO DAILY 09/14/18 Gabapentin 400 mg PO TID 09/14/18 Zolpidem Tartrate [Ambien] 5 mg PO HS 09/14/18 Atovaquone [Mepron Oral Solution -] 1,500 mg PO DAILY@0800 ud 09/22/18 Darunavir/Cobicistat [Prezcobix 800 mg-150 mg Tablet] 1 each PO DAILY tablet Docusate Sodium [Colace -] 100 mg PO Q8H PRN capsule 09/22/18 Dolutegravir Sodium [Tivicay] 50 mg PO DAILY tablet 09/22/18 Ondansetron [Zofran Odt -] 4 mg SL Q8H PRN tab.rapdis 09/22/18
[2018-09-22 11:00] VITALS: BP 125/70; PULSE 67; TEMP 98.7
[2018-09-22] MEDS ORDERED: IPRATROPIUM BR 0.02% 0.5 MG/2.5 ML VIAL.NEB. NEB ONE ×2 (11:10→11:25)
--- NOTE | 2018-09-22 13:08 | PN ---
Progress Note, Physician History of Present Illness: Pt seen and examined at bedside. She is awake and alert. She is being discharged today. She denies shortness of breath or dysuria. She promises that she will not use drugs and that she will follow up. - Current Medication List Current Medications: Active Medications Acetaminophen/Codeine Phosphate (Tylenol # 3 -) 1 tab PO Q4H PRN PRN Reason: PAIN LEVEL 6-10 Last Admin: 09/22/18 10:24 Dose: 1 tab Atovaquone (Mepron -) 1,500 mg PO DAILY@0800 [facility] Last Admin: 09/22/18 10:26 Dose: Not Given Cyproheptadine HCl (Periactin -) 4 mg PO TID [facility] Last Admin: 09/22/18 06:00 Dose: 4 mg Diphenhydramine HCl (Benadryl -) 25 mg PO Q6H PRN PRN Reason: FOR ITCHING Last Admin: 09/20/18 21:16 Dose: 25 mg Docusate Sodium (Colace -) 100 mg PO Q8H PRN PRN Reason: CONSTIPATION Gabapentin (Neurontin -) 400 mg PO TID [facility] Last Admin: 09/22/18 06:00 Dose: Not Given Sodium Chloride (1/2 Normal Saline) 1,000 mls @ 75 mls/hr IV ASDIR [facility] Last Admin: 09/22/18 11:42 Dose: Not Given Nystatin (Nystatin Oral Suspension -) 500,000 units PO Q6HPO [facility] Last Admin: 09/22/18 06:00 Dose: 500,000 units Ondansetron HCl (Zofran Odt -) 4 mg SL Q8H PRN PRN Reason: NAUSEA Last Admin: 09/20/18 12:20 Dose: 4 mg Ranitidine HCl (Zantac -) 300 mg PO DAILY [facility] Last Admin: 09/22/18 10:23 Dose: 300 mg Ropinirole HCl (Requip -) 0.25 mg PO HS [facility] Last Admin: 09/21/18 21:36 Dose: 0.25 mg Zolpidem Tartrate (Ambien -) 5 mg PO HS PRN PRN Reason: INSOMNIA - Objective Vital Signs: Vital Signs Temperature 98.7 F 09/22/18 10:00 Pulse Rate 67 09/22/18 10:00 Respiratory Rate 18 09/22/18 10:00 Blood Pressure 125/70 09/22/18 10:00 O2 Sat by Pulse Oximetry (%) 100 09/20/18 21:00 Constitutional: Yes: Calm Eyes: Yes: Conjunctiva Clear HENT: Yes: Atraumatic Cardiovascular: Yes: S1, S2 Respiratory: Yes: CTA Bilaterally Gastrointestinal: Yes: Soft Genitourinary: Yes: WNL Musculoskeletal: Yes: WNL Edema: No Neurological: Yes: Oriented Psychiatric: Yes: Oriented Labs: CBC, BMP 09/22/18 07:10 09/22/18 07:10 INR, PTT INR 0.92 (0.83-1.09) 09/20/18 07:15 Problem List - Problems (1) CKD (chronic kidney disease) Code(s): N18.9 - CHRONIC KIDNEY DISEASE, UNSPECIFIED (2) HTN (hypertension) Code(s): I10 - ESSENTIAL (PRIMARY) HYPERTENSION Qualifiers: Hypertension type: essential hypertension Qualified Code(s): I10 - Essential (primary) hypertension (3) COPD (chronic obstructive pulmonary disease) Code(s): J44.9 - CHRONIC OBSTRUCTIVE PULMONARY DISEASE, UNSPECIFIED (4) AIDS Code(s): B20 - HUMAN IMMUNODEFICIENCY VIRUS [HIV] DISEASE (5) Breast mass Code(s): N63.0 - UNSPECIFIED LUMP IN UNSPECIFIED BREAST (6) HIV (human immunodeficiency virus infection) Code(s): B20 - HUMAN IMMUNODEFICIENCY VIRUS [HIV] DISEASE Assessment/Plan Current Medications Generic Name Dose Route Start Last Admin Trade Name Freq PRN Reason Stop Dose Admin Acetaminophen/Codeine Phosphate 1 tab 09/20/18 16:35 09/22/18 10:24 Tylenol # 3 - PO 1 tab Q4H PRN Administration PAIN LEVEL 6-10 Atovaquone 1,500 mg 09/14/18 10:15 09/22/18 10:26 Mepron - PO Not Given DAILY@0800 TIMMY Cyproheptadine HCl 4 mg 09/18/18 22:00 09/22/18 06:00 Periactin - PO 4 mg TID TIMMY Administration Diphenhydramine HCl 25 mg 09/17/18 13:43 09/20/18 21:16 Benadryl - PO 25 mg Q6H PRN Administration FOR ITCHING Docusate Sodium 100 mg 09/17/18 13:43 Colace - PO Q8H PRN CONSTIPATION Gabapentin 400 mg 09/18/18 22:00 09/22/18 06:00 Neurontin - PO Not Given TID TIMMY Sodium Chloride 1,000 mls @ 75 mls/hr 09/19/18 11:15 09/22/18 11:42 1/2 Normal Saline IV Not Given ASDIR TIMMY Nystatin 500,000 units 09/13/18 18:00 09/22/18 06:00 Nystatin Oral Suspension - PO 500,000 units Q6HPO TIMMY Administration Ondansetron HCl 4 mg 09/18/18 17:07 09/20/18 12:20 Zofran Odt - SL 4 mg Q8H PRN Administration NAUSEA Ranitidine HCl 300 mg 09/18/18 17:15 09/22/18 10:23 Zantac - PO 300 mg DAILY TIMMY Administration Ropinirole HCl 0.25 mg 09/20/18 22:00 09/21/18 21:36 Requip - PO 0.25 mg HS TIMMY Administration Zolpidem Tartrate 5 mg 09/18/18 22:00 Ambien - PO HS PRN INSOMNIA Impression 1. CKD with unclear baseline 2. COPD 3. HTN 4. HIV not on haart 5. breast mass 6. etoh abuse 7. crack use 8. schizzoaffective 9. gerd 10. nephrotic range proteinuria Plan - will need outpt renal workup and follow up - pt is going back to [place] and will follow with her physicians there - breast mass should be followed as well - pt promises not to use any more drugs - avoid nsaids - will follow Dr Arrington
== END 2018-09-22 13:49 | disposition short-term general hospital (02) | DRG 363 ==
LOC: JER 16:32 → JERBED 23:45 → J8W 09-13 08:56 → JERBED 09-13 08:56 → UNDOADMIN 09-20 23:45 → UNDODISIN 09-22 13:49
PROVIDERS: ADMIT Internal Medicine; ATTEND Internal Medicine
PROC: 0HBU0ZX Excision of Left Breast, Open Approach, Diagnostic (ICD-10-PCS; principal; 2018-09-20)
PROC: 07D63ZX Extraction of Left Axillary Lymphatic, Percutaneous Approach, Diagnostic (ICD-10-PCS; 2018-09-20)
DX: C50.912 Malignant neoplasm of unspecified site of left female breast (principal); N18.9 Chronic kidney disease, unspecified; I12.9 Hypertensive chronic kidney disease with stage 1 through stage 4 chronic kidney disease, or unspecified chronic kidney disease; J44.9 Chronic obstructive pulmonary disease, unspecified; F25.9 Schizoaffective disorder, unspecified; F10.10 Alcohol abuse, uncomplicated; F14.10 Cocaine abuse, uncomplicated; F17.210 Nicotine dependence, cigarettes, uncomplicated; R80.9 Proteinuria, unspecified; K21.9 Gastro-esophageal reflux disease without esophagitis; F19.10 Other psychoactive substance abuse, uncomplicated; B37.0 Candidal stomatitis; K83.8 Other specified diseases of biliary tract; B20 Human immunodeficiency virus [HIV] disease; N17.9 Acute kidney failure, unspecified; R74.0 Nonspecific elevation of levels of transaminase and lactic acid dehydrogenase [LDH]; D72.818 Other decreased white blood cell count; D69.6 Thrombocytopenia, unspecified; Z91.14 Patient's other noncompliance with medication regimen; K59.00 Constipation, unspecified
CPT/HCPCS: 19083; 19084; 36415; 71046-TC-FY; 74181-TC; 76641-TC-50; 76705-TC; 76775-TC; 80048; 80053; 80076; 80307; 81003; 81015; 82550; 82570; 83516; 83520; 83735; 83970; 84100; 84155; 84156; 84165; 84484; 85025; 85610; 86038; 86256; 86359; 86360; 86704; 86706; 86708; 87086; 87340; 87522; 88305-TC; 93005; 93010; 94640; 99283-25; A4648; J0131; J1644; J7030; Q0162

== ENCOUNTER 2018-09-22 16:09 | Inpatient (IN) | payer OTHER ==
[2018-09-22 16:52] VITALS: BMI 21.6
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
[2018-09-22] MEDS ORDERED: DOCUSATE SODIUM 100 MG CAPSULE (FP) PO PRN (19:02)
[2018-09-22] MEDS ORDERED: NICOTINE POLACRILEX 2 MG GUM BC PRN (19:12)
[2018-09-22] MEDS ORDERED: hydrOXYzine PAMOATE 50 MG CAPSULE (FP) PO PRN (19:12)
[2018-09-22] MEDS ORDERED: IBUPROFEN 400 MG TABLET (FP) PO PRN (19:12)
[2018-09-22] MEDS ORDERED: MENTHOL/PHENOL 1 EACH UD MM PRN (19:12)
[2018-09-22] MEDS ORDERED: LOPERAMIDE HCL 2 MG CAPSULE PO PRN (19:12)
[2018-09-22] MEDS ORDERED: MAGNESIUM CITRATE 300 ML BOTTLE PO PRN (19:12)
[2018-09-22] MEDS ORDERED: P-EPHED 60MG/TRIPROLIDI 2.5MG TABLET PO PRN (19:12)
[2018-09-22] MEDS ORDERED: MAG HYDROX/AL HYDROX/SIMETH 30 ML UNIT-DOSE CUP PO PRN (19:12)
[2018-09-22] MEDS ORDERED: CYPROHEPTADINE HCL 4 MG TABLET PO SCH (19:15)
[2018-09-22] MEDS ORDERED: TUBERCULIN PPD 5 TU/0.1ML VIAL ID ONE (22:43)
[2018-09-22] MEDS: MELATONIN 5 MG TABLETS PO PRN (22:48)
[2018-09-22] MEDS: GABAPENTIN 400 MG CAPSULE (FP) PO SCH (22:50)
[2018-09-22] MEDS: THIAMINE HCL 100 MG TABLET (FP) PO SCH (22:51)
[2018-09-22] MEDS: CYPROHEPTADINE HCL 4 MG TABLET PO SCH (22:52)
[2018-09-22] MEDS: ACETAMINOPHEN 325 MG TABLET (FP) PO PRN (22:53)
[2018-09-22 23:20] LABS: URINE APPEARANCE CLOUDY; URINE BILIRUBIN NEGATIVE (<2.0 mg/dL); URINE COLOR YELLOW; URINE GLUCOSE (UA) 1+ (NEGATIVE); URINE KETONE NEGATIVE (NEGATIVE); URINE LEUK ESTERASE 2+ (NEGATIVE); URINE NITRITE NEGATIVE (NEGATIVE); URINE PROTEIN 3+ (NEGATIVE); URINE UROBILINOGEN NEGATIVE mg/dL (0.2-1.0)
[2018-09-22 23:31] LABS: EPI CELLS RARE /HPF (FEW); URINE BACTERIA RARE /hpf (NONE SEEN); URINE HYALINE CAST 5 /lpf; URINE MUCUS RARE
[2018-09-23] MEDS: GABAPENTIN 400 MG CAPSULE (FP) PO SCH ×4 (06:50→22:58)
[2018-09-23] MEDS: CYPROHEPTADINE HCL 4 MG TABLET PO SCH ×3 (06:50→21:12)
[2018-09-23] MEDS ORDERED: PT OWN MED DRAWER 7, Y5N ONE (08:44)
[2018-09-23] MEDS: ATOVAQUONE 750 MG/5 ML (UNIT-DOSE PACKAGING) PO SCH (08:55)
[2018-09-23] MEDS ORDERED: NICOTINE 14 MG/24 HOURS TOPICAL PATCH TD SCH (10:00)
[2018-09-23] MEDS: ACETAMINOPHEN 325 MG TABLET (FP) PO PRN ×2 (10:53→21:14)
[2018-09-23] MEDS: DOLUTEGRAVIR SODIUM 50 MG TABLET (NON-FORMULARY) PO SCH (10:55)
[2018-09-23] MEDS: PANTOPRAZOLE 40 MG TABLET (FP) PO SCH (10:55)
[2018-09-23] MEDS: PRENATAL VITAMINS W/ FOLIC ACID TABLET (FP) PO SCH (10:55)
[2018-09-23] MEDS: DARUNAVIR 800 MG/COBICISTAT 150MG TABLET PO SCH (10:55)
[2018-09-23] MEDS ORDERED: ALBUTEROL SO4 8 GM HFA INHALER IH PRN ×2 (14:05→14:39)
[2018-09-23] MEDS: MAGNESIUM HYDROX 2400MG/30ML ORAL SUSPENSION 30 ML CUP PO PRN (14:08)
[2018-09-23] MEDS: THIAMINE HCL 100 MG TABLET (FP) PO SCH (21:12)
[2018-09-23] MEDS: MELATONIN 5 MG TABLETS PO PRN (21:13)
[2018-09-23] MEDS: BUDESONIDE/FORMETEROL FUMARATE 80/4.5 mcg INHALER IH SCH (21:15)
[2018-09-24] MEDS ORDERED: PT OWN MED DRAWER 7, Y5N ONE ×4 (03:16→13:41)
[2018-09-24] MEDS: GABAPENTIN 400 MG CAPSULE (FP) PO SCH ×3 (06:47→21:28)
[2018-09-24] MEDS: CYPROHEPTADINE HCL 4 MG TABLET PO SCH ×3 (06:48→21:30)
[2018-09-24] MEDS: ACETAMINOPHEN 325 MG TABLET (FP) PO PRN ×3 (06:51→21:29)
[2018-09-24] MEDS: ATOVAQUONE 750 MG/5 ML (UNIT-DOSE PACKAGING) PO SCH (08:00)
[2018-09-24] MEDS: PANTOPRAZOLE 40 MG TABLET (FP) PO SCH (10:17)
[2018-09-24] MEDS: PRENATAL VITAMINS W/ FOLIC ACID TABLET (FP) PO SCH (10:17)
[2018-09-24] MEDS: DARUNAVIR 800 MG/COBICISTAT 150MG TABLET PO SCH (10:17)
[2018-09-24] MEDS: BUDESONIDE/FORMETEROL FUMARATE 80/4.5 mcg INHALER IH SCH ×2 (10:18→21:28)
[2018-09-24] MEDS: DOLUTEGRAVIR SODIUM 50 MG TABLET (NON-FORMULARY) PO SCH (10:18)
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
[2018-09-24] MEDS: traZODone HCL 100 MG TABLET (FP) PO SCH (21:28)
[2018-09-24] MEDS: THIAMINE HCL 100 MG TABLET (FP) PO SCH (21:28)
[2018-09-24] MEDS: QUEtiapine FUMARATE 200 MG TABLET PO SCH (21:29)
[2018-09-25] MEDS: guaiFENesin/D-METHORPHAN HB 10 ML UNIT-DOSE CUPS PO PRN ×2 (02:57→14:50)
[2018-09-25] MEDS: ACETAMINOPHEN 325 MG TABLET (FP) PO PRN (02:57)
[2018-09-25] MEDS ORDERED: PT OWN MED DRAWER 7, Y5N ONE ×2 (03:05→08:27)
[2018-09-25] MEDS: CYPROHEPTADINE HCL 4 MG TABLET PO SCH ×3 (06:20→21:54)
[2018-09-25] MEDS: GABAPENTIN 400 MG CAPSULE (FP) PO SCH (06:20)
[2018-09-25] MEDS: ATOVAQUONE 750 MG/5 ML (UNIT-DOSE PACKAGING) PO SCH (08:28)
[2018-09-25] MEDS: BUDESONIDE/FORMETEROL FUMARATE 80/4.5 mcg INHALER IH SCH ×2 (10:16→21:50)
[2018-09-25] MEDS: PANTOPRAZOLE 40 MG TABLET (FP) PO SCH (10:16)
[2018-09-25] MEDS: PRENATAL VITAMINS W/ FOLIC ACID TABLET (FP) PO SCH (10:16)
[2018-09-25] MEDS: DARUNAVIR 800 MG/COBICISTAT 150MG TABLET PO SCH (10:17)
[2018-09-25] MEDS: DOLUTEGRAVIR SODIUM 50 MG TABLET (NON-FORMULARY) PO SCH (10:17)
[2018-09-25] MEDS: QUEtiapine FUMARATE 200 MG TABLET PO SCH (21:50)
[2018-09-25] MEDS: traZODone HCL 100 MG TABLET (FP) PO SCH (21:50)
[2018-09-25] MEDS: THIAMINE HCL 100 MG TABLET (FP) PO SCH (21:50)
[2018-09-26] MEDS ORDERED: PT OWN MED DRAWER 7, Y5N ONE ×3 (05:58→19:25)
[2018-09-26] MEDS: CYPROHEPTADINE HCL 4 MG TABLET PO SCH ×3 (07:13→21:30)
[2018-09-26] MEDS: ATOVAQUONE 750 MG/5 ML (UNIT-DOSE PACKAGING) PO SCH (07:15)
[2018-09-26] MEDS: DARUNAVIR 800 MG/COBICISTAT 150MG TABLET PO SCH (10:06)
[2018-09-26] MEDS: DOLUTEGRAVIR SODIUM 50 MG TABLET (NON-FORMULARY) PO SCH (10:07)
[2018-09-26] MEDS: BUDESONIDE/FORMETEROL FUMARATE 80/4.5 mcg INHALER IH SCH ×2 (10:07→21:31)
[2018-09-26] MEDS: PRENATAL VITAMINS W/ FOLIC ACID TABLET (FP) PO SCH (10:07)
[2018-09-26] MEDS: PANTOPRAZOLE 40 MG TABLET (FP) PO SCH (10:07)
--- NOTE | 2018-09-26 15:22 | PN ---
[facility] Progress Note Note: PT C/O BACK AND LEG PAIN. ALSO C/O ORAL THRUSH AND WAS ON NYSTAIN SWISH AND DIFLUCAN. PT REPORTS SHE HAS PRIMARY CARE WITH DR. TIANNA MATHIAS AT [facility]. PT REPORTS SHE HAD APPOINTMENT DATE ON 10/05/17 BUT IS NOW HERE FOR REHAB. PT ENCOURAGED TO CALL HER PRIMARY DOCTOR TO RESCHEDULE HER APPOINTMENT IF NEEDED PENDING HER DISCHARGE FROM REHAB FOR FOLLOW UP/MEDICAL MANAGEMENT. Vital Signs 09/26/18 09:14 Pulse Rate 87 Blood Pressure 97/61 ORAL EXAM:WHITISH COATING TO TONGUE NOTED. PLAN:NYSTAIN ORAL SUSPENSION DIRECTED. DIFLUCAN 100 MG PO DAILY X 5 DAYS
[2018-09-26] MEDS ORDERED: FLUCONAZOLE 100 MG TABLET (UD) PO ONE (15:30)
[2018-09-26] MEDS: NYSTATIN 500,000 UNITS/5 ML SUSPENSION PO SCH ×2 (17:49→23:06)
[2018-09-26] MEDS: MAGNESIUM HYDROX 2400MG/30ML ORAL SUSPENSION 30 ML CUP PO PRN (19:09)
[2018-09-26] MEDS: CYCLOBENZAPRINE HCL 10 MG TABLET (FP) PO PRN (19:09)
[2018-09-26] MEDS: traZODone HCL 100 MG TABLET (FP) PO SCH (21:29)
[2018-09-26] MEDS: QUEtiapine FUMARATE 200 MG TABLET PO SCH (21:29)
[2018-09-26] MEDS: THIAMINE HCL 100 MG TABLET (FP) PO SCH (21:29)
[2018-09-26] MEDS: MELATONIN 5 MG TABLETS PO PRN (21:29)
[2018-09-27] MEDS ORDERED: PT OWN MED DRAWER 7, Y5N ONE ×3 (02:56→20:04)
[2018-09-27] MEDS: NYSTATIN 500,000 UNITS/5 ML SUSPENSION PO SCH ×4 (06:27→23:23)
[2018-09-27] MEDS: CYPROHEPTADINE HCL 4 MG TABLET PO SCH (06:27)
[2018-09-27] MEDS: ATOVAQUONE 750 MG/5 ML (UNIT-DOSE PACKAGING) PO SCH (07:46)
--- NOTE | 2018-09-27 09:33 | PN ---
[facility] Progress Note Note: PATIENT WITH BUN 17 AND CREAT 2.0. WILL D/C ALL MEDICATIONS CONTAINING MG DUE TO ELEVATED CR LEVEL. CONTINUE TO MONITOR CLINICALLY.
[2018-09-27] MEDS: DOLUTEGRAVIR SODIUM 50 MG TABLET (NON-FORMULARY) PO SCH (10:06)
[2018-09-27] MEDS: FLUCONAZOLE 100 MG TABLET (UD) PO SCH (10:07)
[2018-09-27] MEDS: PRENATAL VITAMINS W/ FOLIC ACID TABLET (FP) PO SCH (10:07)
[2018-09-27] MEDS: PANTOPRAZOLE 40 MG TABLET (FP) PO SCH (10:07)
[2018-09-27] MEDS: DARUNAVIR 800 MG/COBICISTAT 150MG TABLET PO SCH (10:07)
[2018-09-27] MEDS: BUDESONIDE/FORMETEROL FUMARATE 80/4.5 mcg INHALER IH SCH ×2 (10:08→21:17)
[2018-09-27] MEDS: CYCLOBENZAPRINE HCL 10 MG TABLET (FP) PO PRN (15:48)
[2018-09-27] MEDS: ACETAMINOPHEN 325 MG TABLET (FP) PO PRN ×2 (15:48→21:18)
[2018-09-27] MEDS: THIAMINE HCL 100 MG TABLET (FP) PO SCH (21:17)
[2018-09-27] MEDS: QUEtiapine FUMARATE 200 MG TABLET PO SCH (21:17)
[2018-09-27] MEDS: traZODone HCL 100 MG TABLET (FP) PO SCH (21:17)
[2018-09-27] MEDS: MELATONIN 5 MG TABLETS PO PRN (21:18)
[2018-09-28] MEDS ORDERED: PT OWN MED DRAWER 7, Y5N ONE ×2 (00:47→08:18)
[2018-09-28] MEDS ORDERED: ALBUTEROL SO4 8 GM HFA INHALER IH PRN (00:49)
[2018-09-28] MEDS: ATOVAQUONE 750 MG/5 ML (UNIT-DOSE PACKAGING) PO SCH (07:09)
[2018-09-28] MEDS: NYSTATIN 500,000 UNITS/5 ML SUSPENSION PO SCH ×4 (07:09→23:19)
[2018-09-28] MEDS: PRENATAL VITAMINS W/ FOLIC ACID TABLET (FP) PO SCH (09:50)
[2018-09-28] MEDS: FLUCONAZOLE 100 MG TABLET (UD) PO SCH (09:50)
[2018-09-28] MEDS: PANTOPRAZOLE 40 MG TABLET (FP) PO SCH (09:50)
[2018-09-28] MEDS: DARUNAVIR 800 MG/COBICISTAT 150MG TABLET PO SCH (09:51)
[2018-09-28] MEDS: DOLUTEGRAVIR SODIUM 50 MG TABLET (NON-FORMULARY) PO SCH (09:52)
[2018-09-28] MEDS: BUDESONIDE/FORMETEROL FUMARATE 80/4.5 mcg INHALER IH SCH ×2 (09:52→21:30)
[2018-09-28] MEDS ORDERED: ALBUTEROL SO4 0.083% IH SOL 2.5 MG/3 ML VIAL.NEB. NEB PRN (09:58)
[2018-09-28] MEDS ORDERED: COLLOIDAL OATMEAL 1 BAR EACH TP PRN (10:01)
[2018-09-28] MEDS: BACITRACIN 0.9 GM PACKET TP SCH (10:05)
--- NOTE | 2018-09-28 10:10 | PN ---
[facility] Progress Note Note: PATIENT SEEN FOR C/O WHEEZING, DRY SKIN AND DISCOMFORT TO LEFT BREAST BIOPSY AREA. PATIENT DENIES CHEST PAIN, SOB, FEVER, DRAINAGE, REDNESS, SWELLING TO BX. Vital Signs Temperature 97.8 F 09/28/18 07:09 Pulse Rate 86 09/28/18 09:35 Respiratory Rate 18 09/28/18 07:09 Blood Pressure 132/77 09/28/18 09:35 O2 Sat by Pulse Oximetry (%) Laboratory Tests 09/22/18 09/23/18 23:00 08:00 Urine Color Yellow Urine Appearance Cloudy Urine pH 5.0 Ur Specific [place] 1.019 Urine Protein 3+ H Urine Glucose (UA) 1+ H Urine Ketones Negative Urine Blood Negative Urine Nitrite Negative Urine Bilirubin Negative Urine Urobilinogen Negative Ur Leukocyte Esterase 2+ H Urine WBC (Auto) 29 Urine RBC (Auto) 7 Ur Epithelial Cells Rare Urine Bacteria Rare Hyaline Casts 5 Urine Mucus Rare RPR Titer Nonreactive PE: ALERT AND ORIENTED X 3 SKIN WARM AND DRY, + LEFT BREAST BIOSPY SITE CLEAN, INTACT. NO D/C, REDNESS OR SWELLING NOTED, MILD DRY PATCHES TO CHEEKS CAR S1S2 RESP FAINT SCATTERED WHEEZES, NO CRACKLES, RHONCHI A/P; ASTHMA/WHEEZING: CONTINUE CURRENT INHALERS ORDERED, ADD ALBUTEROL NEBS PRN DRY SKIN: AVEENO AND EUCERIN CREAM S/O LEFT BREAST BX: BACITRACIN DRESSING DAILY X 3 DAYS, WARM COMPRESS PRN CONTINUE TO MONITOR CLINICALLY
[2018-09-28] MEDS: MINERAL OIL/PETROLAT/WATER TOPICAL CREAM 113 GM JAR TP SCH (10:20)
[2018-09-28] MEDS: ACETAMINOPHEN 325 MG TABLET (FP) PO PRN (14:04)
[2018-09-28] MEDS: MELATONIN 5 MG TABLETS PO PRN (21:29)
[2018-09-28] MEDS: CYCLOBENZAPRINE HCL 10 MG TABLET (FP) PO PRN (21:29)
[2018-09-28] MEDS: QUEtiapine FUMARATE 200 MG TABLET PO SCH (21:29)
[2018-09-28] MEDS: traZODone HCL 100 MG TABLET (FP) PO SCH (21:29)
[2018-09-28] MEDS: THIAMINE HCL 100 MG TABLET (FP) PO SCH (21:30)
[2018-09-29] MEDS: NYSTATIN 500,000 UNITS/5 ML SUSPENSION PO SCH (06:30)
[2018-09-29] MEDS: ACETAMINOPHEN 325 MG TABLET (FP) PO PRN (06:32)
[2018-09-29 07:06] VITALS: BP 125/80; PULSE 94; TEMP 100.2
[2018-09-29] MEDS: ATOVAQUONE 750 MG/5 ML (UNIT-DOSE PACKAGING) PO SCH (08:08)
--- NOTE | 2018-09-29 09:09 | PN ---
[facility] Progress Note Note: Pt leaving today. To f/u with PCP in [place]: including active issues to be addressed breast cancer and HIV.
[2018-09-29] MEDS ORDERED: PT OWN MED DRAWER 7, Y5N ONE (09:14)
--- NOTE | 2018-09-29 09:24 | PN ---
Psychiatric Progress Note Vital Signs: Vital Signs Period Temp Pulse Resp BP Sys/Lr Pulse Ox Last 24 Hr 100.2 F 86-94 16-16 125-132/77-80 Date of Session: 09/29/18 Chief Complaint:: Discharge Note HPI: Patient addressing Alcohol and Cocaine Dependence comorbid with Nicotine Dependence, Schizoafective Disorder, Substance-Induced Mood Disorder and Substance-Induced Sleep Disorder ROS: HTN, HIV/AIDS, COPD, Blindness right eye, Hearing impairment, Adenocarcinoma of left breast recently diagnosed were medically managed Current Medications: Active Medications Generic Name Dose Route Start Last Admin Trade Name Freq PRN Reason Stop Dose Admin Acetaminophen 650 mg 09/22/18 19:12 09/29/18 06:32 Tylenol - PO 650 mg Q4H PRN Administration FEVER Albuterol Sulfate 2 puff 09/28/18 00:49 09/28/18 01:11 Ventolin Hfa Inhaler - IH 2 puff Q4H PRN Administration SHORT OF BREATH/WHEEZING Albuterol Sulfate 1 amp 09/28/18 09:58 09/28/18 17:47 Ventolin 0.083% Nebulizer Soln - NEB 1 amp Q4H PRN Administration SHORT OF BREATH/WHEEZING Atovaquone 1,500 mg 09/23/18 08:00 09/29/18 08:08 Mepron - PO Not Given DAILY@0800 TIMMY Bacitracin 0.9 gm 09/28/18 10:00 09/28/18 10:05 Bacitracin - TP 0.9 gm DAILY TIMMY Administration Budesonide/Formoterol Fumarate 2 puff 09/23/18 22:00 09/28/18 21:30 Symbicort 80/4.5mcg - IH 2 puff BID TIMMY Administration Colloidal Oatmeal 1 applic 09/28/18 10:01 09/28/18 14:07 Aveeno Soap - TP 1 bar DAILY PRN Administration HYGEINE Cyclobenzaprine HCl 10 mg 09/26/18 15:15 09/28/18 21:29 Flexeril - PO 10 mg TID PRN Administration MUSCLE SPASMS Docusate Sodium 100 mg 09/22/18 19:02 Colace - PO Q8H PRN CONSTIPATION Eucalyptus/Menthol/Phenol/Sorbitol 1 each 09/22/18 19:12 Cepastat Lozenge - MM Q4H PRN SORE THROAT Fluconazole 100 mg 09/27/18 10:00 09/28/18 09:50 Diflucan - PO 10/01/18 10:01 100 mg DAILY TIMMY Administration Guaifenesin 10 ml 09/22/18 19:12 09/25/18 14:50 Robitussin Dm - PO 10 ml Q6H PRN Administration COUGH Hydroxyzine Pamoate 50 mg 09/22/18 19:12 09/22/18 22:48 Vistaril - PO 50 mg Q4H PRN Administration AGITATION Loperamide HCl 4 mg 09/22/18 19:12 Imodium - PO Q6H PRN DIARRHEA Melatonin 5 mg 09/22/18 22:00 09/28/18 21:29 Melatonin PO 5 mg HS PRN Administration INSOMNIA Multi-Ingredient Lotion 1 applic 09/28/18 10:15 09/28/18 10:20 Eucerin (Small Jar) - TP 1 applic DAILY TIMMY Administration Nicotine Polacrilex 2 mg 09/22/18 19:12 Nicorette Gum - BC Q2H PRN NICOTINE REPLACEMENT RX Nystatin 500,000 units 09/26/18 18:00 09/29/18 06:30 Nystatin Oral Suspension - PO 500,000 units Q6HPO TIMMY Administration Pantoprazole Sodium 40 mg 09/23/18 10:00 09/28/18 09:50 Protonix - PO 40 mg DAILY TIMMY Administration Multivit/Folic Acid/Iron 1 tab 09/23/18 10:00 09/28/18 09:50 Vitamins (Sjr) - PO 1 tab DAILY TIMMY Administration Pseudoephedrine/Triprolidine 1 combo 09/22/18 19:12 Actifed - PO TID PRN NASAL CONGESTION Quetiapine Fumarate 200 mg 09/24/18 22:00 09/28/18 21:29 Seroquel - PO 200 mg HS TIMMY Administration Thiamine HCl 100 mg 09/22/18 22:00 09/28/18 21:30 Vitamin B1 - PO 100 mg HS TIMMY Administration Trazodone HCl 100 mg 09/24/18 22:00 09/28/18 21:29 Desyrel - PO 100 mg HS TIMMY Administration Current Side Effect: No Lab tests ordered: Yes Lab tests reviewed: Yes Provider note:: Patient has completed this program today. She has partially met her treatment goals and will continue to address her issues in outpatient treatment at [facility] at [address] [place] [address]. 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 She responded well to Seroquel 200 mg po HS and Trazadone 100 mg po HS. Scripts for these medications are electronically transmitted to [facility] at [address] [place] [address]. She is stable for discharge today Total face to face time:: 35 Mental Status Exam - Mental Status Exam Alert and Oriented to: Time, Place, Person Cognitive Function: Fair Patient Appearance: Well Groomed Mood: Hopeful, Euthymic Affect: Appropriate Patient Behavior: Cooperative Speech Pattern: Clear Voice Loudness: Normal Thought Process: Intact Thought Disorder: Not Present Hallucinations: Denies Suicidal Ideation: Denies Homicidal Ideation: Denies Insight/Judgement: Fair Sleep: Fair Appetite: Good Muscle strength/Tone: Normal Gait/Station: Normal Psychiatric Treatment Plan - Problem List (1) Alcohol dependence Current Visit: Yes (2) Cocaine dependence Current Visit: Yes (3) Nicotine dependence Current Visit: Yes (4) Schizoaffective disorder, bipolar type Current Visit: Yes (5) Substance induced mood disorder Current Visit: Yes (6) Substance-induced sleep disorder Current Visit: Yes (7) Adenocarcinoma of left breast Current Visit: Yes (8) AIDS Current Visit: Yes (9) Blind right eye Current Visit: Yes (10) COPD (chronic obstructive pulmonary disease) Current Visit: Yes Qualifiers: COPD type: unspecified COPD Qualified Code(s): J44.9 - Chronic obstructive pulmonary disease, unspecified (11) HIV (human immunodeficiency virus infection) Current Visit: Yes (12) HTN (hypertension) Current Visit: Yes Qualifiers: Hypertension type: essential hypertension Qualified Code(s): I10 - Essential (primary) hypertension (13) Hearing loss Current Visit: Yes Qualifiers: Hearing loss type: unspecified Laterality: unspecified laterality Qualified Code(s): H91.90 - Unspecified hearing loss, unspecified ear Initial treatment plan: Patient is discharged today and referred to [facility] in [place], [place] for outpatient treatment
[2018-09-29] MEDS: BACITRACIN 0.9 GM PACKET TP SCH (09:32)
[2018-09-29] MEDS: FLUCONAZOLE 100 MG TABLET (UD) PO SCH (09:32)
[2018-09-29] MEDS: PRENATAL VITAMINS W/ FOLIC ACID TABLET (FP) PO SCH (09:32)
[2018-09-29] MEDS: PANTOPRAZOLE 40 MG TABLET (FP) PO SCH (09:33)
[2018-09-29] MEDS: DARUNAVIR 800 MG/COBICISTAT 150MG TABLET PO SCH (09:34)
[2018-09-29] MEDS: DOLUTEGRAVIR SODIUM 50 MG TABLET (NON-FORMULARY) PO SCH (09:34)
[2018-09-29] MEDS: BUDESONIDE/FORMETEROL FUMARATE 80/4.5 mcg INHALER IH SCH (09:35)
[2018-09-29] MEDS: MINERAL OIL/PETROLAT/WATER TOPICAL CREAM 113 GM JAR TP SCH (09:35)
== END 2018-09-29 10:35 | disposition home or self-care (01) | DRG 772 ==
LOC: YASAS 16:09 → Y3E 19:31
PROVIDERS: ADMIT Psychiatry & Neurology Psychiatry; ATTEND Psychiatry & Neurology Psychiatry
PROC: HZ42ZZZ Group Counseling for Substance Abuse Treatment, Cognitive-Behavioral (ICD-10-PCS; principal; 2018-09-22)
DX: F10.20 Alcohol dependence, uncomplicated (principal); F14.20 Cocaine dependence, uncomplicated; F17.210 Nicotine dependence, cigarettes, uncomplicated; F20.0 Paranoid schizophrenia; F19.24 Other psychoactive substance dependence with psychoactive substance-induced mood disorder; F19.282 Other psychoactive substance dependence with psychoactive substance-induced sleep disorder; B20 Human immunodeficiency virus [HIV] disease; I10 Essential (primary) hypertension; J44.9 Chronic obstructive pulmonary disease, unspecified; J45.909 Unspecified asthma, uncomplicated; C50.912 Malignant neoplasm of unspecified site of left female breast; H91.90 Unspecified hearing loss, unspecified ear; H54.61 Unqualified visual loss, right eye, normal vision left eye; B37.0 Candidal stomatitis; R74.0 Nonspecific elevation of levels of transaminase and lactic acid dehydrogenase [LDH]; K83.8 Other specified diseases of biliary tract; K80.20 Calculus of gallbladder without cholecystitis without obstruction; K59.00 Constipation, unspecified; N17.9 Acute kidney failure, unspecified; Z91.5 Personal history of self-harm
CPT/HCPCS: 36415; 81003; 81015; 86593; 94640